=== PATIENT | female | born 1935 | race Caucasian/White ===

== ENCOUNTER 2017-04-24 13:27 | Inpatient (IN) ==
[2017-04-24 16:16] LABS: Basophils # 0.1 K/mcL (0.0-0.2); Eosinophils # 0.6 K/mcL (0.0-0.6); Hematocrit 42.8 % (35.3-44.9); Hemoglobin 13.9 g/dL (11.5-15.4); Immature Granulocytes % 0.3 % (0-4); Lymphocytes # 2.3 K/mcL (0.6-4.6); Lymphocytes % 26.9 %; Mean Corpuscular HGB Conc 32.5 g/dL (31.6-35.5); Mean Corpuscular Hemoglobin 29.4 pg (28.0-33.3); Mean Corpuscular Volume 90.7 fL (83.0-100.0); Mean Platelet Volume 9.5 fL (9.4-12.4); Monocytes # 0.6 K/mcL (0.0-1.3); Monocytes % 6.5 %; Platelet Count 290 K/mcL (140-400); Red Blood Count 4.72 M/mcL (3.82-4.97); Red Cell Distribution Width 13.2 % (11.5-14.5); Segmented Neutrophils % 58.3 %
[2017-04-24 16:29] LABS: Calcium 9.9 mg/dL (8.6-10.8); Potassium 4.5 mEq/L (3.5-4.5)
[2017-04-24] MEDS ORDERED: Vancomycin 1,000 MG in D5% in Water 250 ML IVPB ONE (16:46)
[2017-04-24] MEDS: Gentamicin Oint 15 GM TUBE TP SCH (17:47)
--- NOTE | 2017-04-24 18:05 | Emergency Department Note ---
Disposition Clinical Impression: Cellulitis and abscess of left leg Disposition: Admitted As Inpatient Condition: Fair Time of Disposition: 18:31 General Adult HPI - General Chief complaint: ED Wound/Laceration Stated complaint: ulcer on left leg at the ankle Time Seen by Provider: 04/24/17 15:36 Source: patient Mode of arrival: ambulatory Limitations: no limitations Nursing Notes Reviewed: Yes Vital Signs Reviewed: Yes - History of Present Illness HPI Narrative: Patient is a 81-year-old female with a past medical history of the left ankle ulcer. Pain Scale: 10 - Related Data Home Medications Medication Instructions Recorded Confirmed Acetaminophen [Tylenol] 500 mg PO BID PRN 04/24/17 04/24/17 Aspirin Enteric Coated [Aspirin EC] 325 mg PO DAILY 04/24/17 04/24/17 Carvedilol [Carvedilol] 3.125 mg PO BID 04/24/17 04/24/17 Cholecalciferol (Vitamin D3) 2,000 unit PO DAILY 04/24/17 04/24/17 [Vitamin D] Furosemide [Lasix] 40 mg PO BID PRN 04/24/17 04/24/17 Gabapentin [Neurontin] 300 mg PO BID 04/24/17 04/24/17 Levomilnacipran HCl [Fetzima] 20 mg PO HS 04/24/17 04/24/17 Losartan [Cozaar] 12.5 mg PO DAILY 04/24/17 04/24/17 Multivit with Calcium,Iron,Min 1 each PO DAILY 04/24/17 04/24/17 [One Daily Women's] Omeprazole [PriLOSEC] 40 mg PO DAILY 04/24/17 04/24/17 Polyethylene Glycol 3350 [MiraLAX] 17 gm PO DAILY 04/24/17 04/24/17 Potassium Chloride [K-Tab ER] 20 meq PO BID PRN 04/24/17 04/24/17 Pravastatin Sodium 10 mg PO HS 04/24/17 04/24/17 Tizanidine HCl 2 mg PO TID PRN 04/24/17 04/24/17 Tramadol HCl [Ultram] 50 mg PO BID PRN 04/24/17 04/24/17 Vitamin B Complex [B Complex] 1 each PO DAILY 04/24/17 04/24/17 dilTIAZem HCl [Diltiazem HCl] 120 mg PO BID 04/24/17 04/24/17 Allergies Allergy/AdvReac Type Severity Reaction Status Date / Time No Known Allergies Allergy Verified 04/13/15 13:11 All systems ED: reviewed and negative except as stated. Constitutional: Denies: fever, chills Cardiovascular: Denies: chest pain, palpitations Respiratory: Denies: cough, dyspnea, wheezes Gastrointestinal: Denies: abdominal pain, nausea, vomiting, diarrhea Musculoskeletal: Denies: back pain, neck pain Integumentary: Denies: rash, abrasion Neurological: Denies: headache, weakness Psychiatric: Denies: anxiety, depression Endocrine: Denies: fatigue Past Medical History - Past Medical History Medical history: Reports: arthritis, atrial fibrillation, cancer, hyperlipidemia , hypertension Surgical history: Reports: other (nerve stimulator and nerve ablation lumbar spine) Psychiatric history: Reports: anxiety, depression - Social History Smoking Status: Never smoker Smokeless Tobacco Status: No Alcohol use: Reports: none Drug use: Reports: none Physical Exam Patient not appear to be in any acute distress at this time. She is sitting up in bed reading with her reading glasses on. - General Limitations: no limitations General appearance: alert, in no apparent distress - Head Head exam: atraumatic, normocephalic, normal inspection - Eye Eye exam: Present: normal appearance, PERRL, EOMI - ENT ENT exam: normal exam, normal oropharynx, mucous membranes moist - Neck Neck exam: Present: normal inspection, full ROM, trachea midline - Chest Chest inspection: Present: normal inspection, symmetric chest wall rise. Absent : tenderness - Respiratory Respiratory exam: Present: normal lung sounds bilaterally. Absent: respiratory distress - Cardiovascular Cardiovascular exam: Present: regular rate, normal rhythm, normal heart sounds - Abdominal Exam Abdominal exam: Present: soft, Non-Tender, normal bowel sounds - Extremities Exam Extremities exam: Present: normal inspection, full ROM, normal capillary refill. Absent: tenderness, pedal edema - Back Exam Back exam: Present: normal inspection, full ROM. Absent: CVA tenderness (R), CVA tenderness (L) - Neurological Exam Neurological exam: Present: alert, oriented X3 - Psychiatric Psychiatric exam: Present: normal affect, normal mood - Skin Skin exam: Present: warm, other (Patient has a superficial wound on the left ankle over the lateral aspect that is about 9 x 10 cm in diameter with a overlying pus drainage that is purulent. She also has surrounding erythema to the area with area of induration surrounding 2-3 cm along the edge of the diameter of the wound. There is no bone exposure the wound does not appear to go deep and I do not palpate any subcutaneous emphysema at this time. The wound tracks up to the mid left lateral leg. She has good dorsalis pedis and posterior tibialis pulses bilaterally. Good sensation in both of her feet. Does not appear to be any joint involvement.) Course Course Narrative: Patient is a 81-year-old female with a past medical history of A. fib, hyperlipidemia and hypertension along with diabetes that has resolved according to the patient. She presents with a left lateral ankle wound. She states that back in 1974 she did have a surgery to have veins removed that were controlled bleeding to an ulcer in the same area and that healed well and scarred over however this past spring she was scratched by cat and since then she has had issues with this wound. Her last dose of antibiotics was Bactrim and was a 7 day course at the end of March seen in our emergency department. The patient was sent here by the wound clinic at [facility] for further evaluation of her wound and for IV antibiotics. The patient was started on vancomycin and Zosyn in the emergency Department topical gentamicin was applied to the wound. We also ordered other labs such as inflammatory markers including a CRP and ESR and ankle x-ray. - Reevaluation(s) Reevaluation #1: The patient's ESR was 79 and her C-reactive protein was 11. Her foot x-ray did not show any bony involvement. Otherwise patient's CBC was unremarkable. Plan is to admit the patient to the hospitalists for further IV antibiotics. Patient agrees with this plan. Time: 18:13 Reevaluation #2: Patient admitted to [facility] for further evaluation and treatment. Time: 18:28 Vital Signs Temperature 97.5 F L 04/24/17 13:53 Pulse Rate 72 04/24/17 13:53 Respiratory Rate 18 04/24/17 13:53 Blood Pressure 126/71 04/24/17 13:53 O2 Sat by Pulse Oximetry 98 04/24/17 13:53 Temperature 98.4 F 04/25/17 18:57 Pulse Rate 86 04/25/17 18:57 Respiratory Rate 18 04/25/17 18:57 Blood Pressure 145/64 04/25/17 18:57 O2 Sat by Pulse Oximetry 96 04/25/17 18:57 Oxygen Delivery Oxygen Delivery Room Air Medical Decision Making - Lab Data Result diagrams: 04/25/17 03:51 04/25/17 03:51 Lab Results 04/24/17 04/24/17 04/24/17 Range/Units 16:01 16:01 16:01 WBC 8.6 (4.3-11.1) K/mcL RBC 4.72 (3.82-4.97) M/mcL Hgb 13.9 (11.5-15.4) g/dL Hct 42.8 (35.3-44.9) % MCV 90.7 (83.0-100.0) fL MCH 29.4 (28.0-33.3) pg MCHC 32.5 (31.6-35.5) g/dL RDW 13.2 (11.5-14.5) % Plt Count 290 (140-400) K/mcL MPV 9.5 (9.4-12.4) fL Immature Gran % 0.3 (0-4) % Seg Neutrophils % 58.3 % Lymphocytes % 26.9 % Monocytes % 6.5 % Eosinophils % 7.0 % Basophils % 1.0 % Neutrophils # 5.0 (1.6-8.9) K/mcL Lymphocytes # 2.3 (0.6-4.6) K/mcL Monocytes # 0.6 (0.0-1.3) K/mcL Eosinophils # 0.6 (0.0-0.6) K/mcL Basophils # 0.1 (0.0-0.2) K/mcL ESR 79 H (0-15) mm/hr Sodium 140 (136-145) mEq/L Potassium 4.5 (3.5-4.5) mEq/L Chloride 105 (98-109) mEq/L Carbon Dioxide 25 (19-29) mEq/L BUN 18 (7-20) mg/dL Creatinine 1.07 (0.57-1.11) mg/dL Est GFR ( Amer) 60 (> 60) Est GFR (Non-Af Amer) 49 L (> 60) BUN/Creatinine Ratio 17 (6-26) Glucose 101 H (70-99) mg/dL Calculated Osmolality 292 (280-300) Calcium 9.9 (8.6-10.8) mg/dL C-Reactive Protein 11 H (Less than 5) mg/L Attestation Statement - Attestation Attestation: I examined this patient and my medical decision-making was reviewed with the Resident Physician. I agree with the documented findings, disposition and treatment plan as described except to the extent set forth below. Suspect local cellulitis. [facility] for IV antibiotics. The patient was sent in by their primary care physician. No evidence of gas forming organisms or are C myelitis on x-ray.
[2017-04-24] MEDS ORDERED: Ondansetron 4 MG/2 ML VIAL IVP PRN (22:28)
[2017-04-24] MEDS ORDERED: Naloxone 0.4 MG/ML INJ IVP PRN (22:28)
[2017-04-24] MEDS ORDERED: tiZANidine 4 MG TABLET PO PRN (22:33)
[2017-04-24] MEDS ORDERED: traMADol 50 MG TABLET PO PRN (22:33)
[2017-04-24] MEDS ORDERED: Furosemide 40 MG TABLET PO PRN (22:33)
--- NOTE | 2017-04-24 22:59 | Internal Med History&Physical ---
<[facility] - Last Filed: 04/24/17 23:24> Date of Encounter: 04/24/17 Time of Encounter: 21:00 Assessment and Plan (1) Cellulitis and abscess of left leg Current visit: Yes Status: Acute Acute on chronic wound of the left outer ankle. She reports this wound has been recurring for the past 40 years. Patient has cellulitis of left lower extremity with erythema and edema as well as open wound to left outer ankle with purulent drainage. Patient reports she was receiving wound care at [facility] previously. Wound culture ordered. Wound care consult and daily wound care ordered. IV piggyback vancomycin with pharmacy dosing and Zosyn 3.375 gm every 8 hours for infection coverage. Will adjust antibiotic coverage based on culture results. (2) HLD (hyperlipidemia) Current visit: Yes Status: Chronic Hx of chronic HLD. Lipid panel ordered in a.m. labs. Continue patient's pravastatin. Qualifiers: Hyperlipidemia type: pure hypercholesterolemia Qualified Code(s): E78.00 - Pure hypercholesterolemia, unspecified; E78.0 - Pure hypercholesterolemia (3) HTN (hypertension) Current visit: Yes Status: Chronic Hx of chronic HTN. Monitor patient in vital signs and continue patient's carvedilol, diltiazem, and Cozaar. Qualifiers: Hypertension type: essential hypertension Qualified Code(s): I10 - Essential (primary) hypertension (4) Atrial fibrillation Current visit: Yes Status: Chronic Hx of chronic atrial fibrillation. Patient reports she is not on anticoagulation due to reaction she suffered previously. Continue aspirin therapy. Patient placed on continuous cardiac telemetry. Qualifiers: Atrial fibrillation type: chronic Qualified Code(s): I48.2 - Chronic atrial fibrillation (5) Arthritis Current visit: Yes Status: Chronic Hx of chronic arthritis. Continue Ultram and tizanidine. (6) DVT prophylaxis Current visit: Yes Status: Acute Heparin 5,000 units SQ Q8 for DVT prophylaxis. Internal Medicine - H&P: HPI Chief complaint: Painful sore on left outer ankle Admitted From: Emergency Dept Plans for Post Hospital Care: Home History of present illness: Ms. Jalloh is a 81 year old female with medical history of arthritis, atrial fibrillation, previous ovarian cancer, hyperlipidemia, hypertension presents to ED with chief complaint of a painful open sore on the left outer ankle which she states she has suffered with on and off for approximately 40 years. Patient reports she has been followed at [facility] [facility] for wound care in the past. Patient reports pain in the left lower ankle, chronic back pain, and some dizziness but denies chest pain, palpitations, recent illness, fever, chills, cough, unusual bleeding, abdominal pain, changes in vision, nausea, vomiting, diarrhea, headache, weakness, lightheadedness, presyncope, or syncope. Past Med Surg Social Fam HX - Past Medical History Source: patient, old records reviewed Medical history: arthritis, atrial fibrillation, cancer, hyperlipidemia, hypertension Psychiatric history: anxiety, depression - Past Surgical History Surgical History: appendectomy, cholecystectomy, herniorrhaphy, hysterectomy ( Total d/t ovarian cancer), other - Social History Smoking Status: Former smoker Packs per day: 1/2 PPD - Reports quitting 50 years ago Smokeless Tobacco Status: No Alcohol use: none Drug use: none Current living situation: Home Activity Level: Independent ambulation, Uses cane/walker Recent Out of Country Travel Within the Last 8 Weeks: No Exposure or Possible Exposure to Illness During Travel: No - Family History Father Race: Family Member Ethnicity: Non- Living Status: Age at : 78 Cause of : Kidney cancer Hx Family Cancer: Yes (Kidney) Mother Race: Family Member Ethnicity: Non- Living Status: Age at : 79 Cause of : HD Hx Family Cardiac Disorders: Yes (HD) Hx Family Neuromuscular Disorders: Yes (Parkinson disease) Brother Race: Family Member Ethnicity: Non- Living Status: Age at : 79 Cause of : Renal failure Hx Family Cardiac Disorders: Yes (Quad bypass) Hx Family Genitourinary Disorders: Yes (CKD w/dialysis) Hx Family Endocrine Disorder: Yes (DM) Sister Race: Family Member Ethnicity: Non- Living Status: (5) Age at : 57 Cause of : Lung cancer Hx Family Cancer: Yes (Lung) Grandmother Race: Family Member Ethnicity: Non- Living Status: Cause of : CAD Hx Family Cardiac Disorders: Yes (CAD) Internal Medicine - H&P: Meds Acetaminophen [Tylenol] 500 mg PO BID PRN 04/24/17 [History] Aspirin Enteric Coated [Aspirin EC] 325 mg PO DAILY 04/24/17 [History] Carvedilol [Carvedilol] 3.125 mg PO BID 04/24/17 [History] Cholecalciferol (Vitamin D3) [Vitamin D] 2,000 unit PO DAILY 04/24/17 [History] Furosemide [Lasix] 40 mg PO BID PRN 04/24/17 [History] Gabapentin [Neurontin] 300 mg PO BID 04/24/17 [History] Levomilnacipran HCl [Fetzima] 20 mg PO HS 04/24/17 [History] Losartan [Cozaar] 12.5 mg PO DAILY 04/24/17 [History] Multivit with Calcium,Iron,Min [One Daily Women's] 1 each PO DAILY 04/24/17 [ History] Omeprazole [PriLOSEC] 40 mg PO DAILY 04/24/17 [History] Polyethylene Glycol 3350 [MiraLAX] 17 gm PO DAILY 04/24/17 [History] Potassium Chloride [K-Tab ER] 20 meq PO BID PRN 04/24/17 [History] Pravastatin Sodium 10 mg PO HS 04/24/17 [History] Tizanidine HCl 2 mg PO TID PRN 04/24/17 [History] Tramadol HCl [Ultram] 50 mg PO BID PRN 04/24/17 [History] Vitamin B Complex [B Complex] 1 each PO DAILY 04/24/17 [History] dilTIAZem HCl [Diltiazem HCl] 120 mg PO BID 04/24/17 [History] 3 Allergy/AdvReac Type Severity Reaction Status Date / Time No Known Allergies Allergy Verified 04/13/15 13:11 All Systems PM: A 10-system review of systems was performed and is negative for pertinent findings except as documented above in the HPI. - Constitutional Constitutional: no chills, no fever(s), no night sweats - EENT Eyes: no change in vision, no discharge, no pain, no photophobia Ears: no ear discharge, no ear pain, no tinnitus Nose, mouth and throat: no dysphagia, no nasal discharge, no neck pain, no sore throat - Breasts Breasts: as per HPI - Cardiovascular Cardiovascular ROS IM: no chest pain, no diaphoresis, no dyspnea, no lightheadedness, no palpitations, no syncope - Respiratory Respiratory: no cough, no dyspnea, no wheezing, no excessive phlegm production - Gastrointestinal Gastrointestinal: no abdominal pain, no diarrhea, no hematemesis, no hematochezia, no melena, no nausea, no vomiting - Genitourinary Genitourinary: no change in urinary stream, no dysuria, no flank pain, no hematuria Menstruation: post hysterectomy - Musculoskeletal Musculoskeletal ROS IM: as per HPI, back pain, no numbness, no tingling - Integumentary Integumentary IM: as per HPI, sores (Left outer ankle) - Neurological Neurological ROS: no confusion, no convulsions, no focal weakness, no numbness, no tingling, no tremor(s) - Psychiatric Psychiatric: as per HPI - Endocrine Endocrine IM: as per HPI - Hematologic/Lymphatic Hematologic/Lymphatic: no easy bruising - Allergic/Immunologic Allergic/Immunologic: as per HPI - Constitutional Vitals: Temp Pulse Resp BP Pulse Ox 98.0 F 90 14 148/85 97 04/24/17 20:08 04/24/17 20:08 04/24/17 20:08 04/24/17 20:08 04/24/17 20:08 General appearance: Present: cooperative, A&O X 3, pleasant, no acute distress, obese, answers questions appropriately - Head Head exam: Present: atraumatic, normocephalic - Eye Eye exam: Present: PERRL, conjuntiva pink, sclera anicteric Pupils: Present: PERRL - ENT ENT exam: Present: normal exam, normal external ear exam - Neck Neck exam general surgery: Present: normal inspection, supple, trachea midline. Absent: lymphadenopathy - Respiratory Respiratory exam: Present: CTAB. Absent: accessory muscle use, rales, rhonchi, wheezes - Cardiovascular Cardiovascular exam: Present: RRR, +S1, +S2. Absent: diastolic murmur, gallop, rubs, systolic murmur - GI/Abdominal GI/Abdominal exam: Present: normal bowel sounds, soft, no peritoneal signs. Absent: distended, tenderness - Rectal Rectal exam: Present: deferred - Additional comments: exam deferred. - Extremities Exam Extremities exam: Present: warm, radial pulses palpable and symmetrical. Absent : calf tenderness, cyanotic, pedal edema - Back Exam Back exam: Present: normal inspection - Neurological Exam Neurological exam: Present: CN II-XII intact, oriented X3, no focal deficits. Absent: pronater drift, facial droop, speech deficit - Psychiatric Psychiatric exam: Present: normal affect, normal mood - Skin Additional comments: Open sore to the left outer ankle with cellulitis of the LLE. Erythema and edema present. Internal Med - H&P Results - Labs CBC & Chem 7: 04/24/17 16:01 04/24/17 16:01 - Diagnostic Studies Other Images Additional comments: Impressions Ankle X-Ray 04/24/17 16:43 IMPRESSION: No acute periostitis or bony destruction. D/ / Andi Knight MD / Andi Knight MD Interpreting Provider: Andi Knight MD <Louise Lloyd - Last Filed: 04/25/17 03:29> Date of Encounter: 04/25/17 Internal Medicine - H&P: HPI History of present illness: Ms. Jalloh is a 81 year old female All Systems PM: A 10-system review of systems was performed and is negative for pertinent findings except as documented above in the HPI. - Constitutional Vitals: Temp Pulse Resp BP Pulse Ox 97.9 F 83 14 160/78 95 04/24/17 23:20 04/24/17 23:20 04/24/17 23:20 04/24/17 23:20 04/24/17 23:20 Internal Med - H&P Results - Labs CBC & Chem 7: 04/24/17 16:01 04/24/17 16:01 - Attending Attestation I saw and examined patient independently. I have discussed with QUALITY ASSURANCE DIRECTOR Mr [facility]ger regarding the management plan. Agree with the documentation. Patient presented with left ankle ulcer with cellulitis. We will place patient on Vanco and Zosyn at this point. Follow-up blood culture and wound culture. We will consult wound care.
[2017-04-24] MEDS ORDERED: Vancomycin 1,250 MG in D5% in Water 250 ML IVPB SCH (23:00)
[2017-04-25] MEDS ORDERED: Piperacillin/Tazobactam 3.375 GM in D5% in Water (Mini-Bag+) 100 ML IVPB SCH
[2017-04-25] MEDS: Diltiazem SR (12hr) 60 MG CAPSULE PO SCH ×3 (00:20→21:09)
[2017-04-25] MEDS: *HR* Heparin 5,000 UNIT/ML VIAL SQ SCH ×3 (00:21→17:17)
[2017-04-25] MEDS: Piperacillin/Tazobactam 3.375 GM in D5% in Water (Mini-Bag+) 100 ML IVPB SCH ×3 (00:21→17:16)
[2017-04-25 04:43] LABS: INR 1.1; Prothrombin Time 11.7 Seconds (9.4-12.1)
[2017-04-25 04:50] LABS: Basophils # 0.1 K/mcL (0.0-0.2); Eosinophils # 0.5 K/mcL (0.0-0.6); Eosinophils % 6.4 %; Hematocrit 36.5 % (35.3-44.9); Immature Granulocytes % 0.2 % (0-4); Lymphocytes # 2.3 K/mcL (0.6-4.6); Lymphocytes % 27.2 %; Mean Corpuscular HGB Conc 33.4 g/dL (31.6-35.5); Mean Corpuscular Hemoglobin 29.5 pg (28.0-33.3); Mean Corpuscular Volume 88.2 fL (83.0-100.0); Mean Platelet Volume 9.7 fL (9.4-12.4); Monocytes # 0.6 K/mcL (0.0-1.3); Monocytes % 7.6 %; Neutrophils # 4.8 K/mcL (1.6-8.9); Platelet Count 244 K/mcL (140-400); Red Blood Count 4.14 M/mcL (3.82-4.97); Red Cell Distribution Width 13.3 % (11.5-14.5); Segmented Neutrophils % 57.6 %
[2017-04-25 04:52] LABS: Hemoglobin 12.2 g/dL (11.5-15.4)
[2017-04-25 04:58] LABS: Alanine Aminotransferase 8 Units/L (0-55); Albumin 3.3 g/dL (3.5-5.0); Alkaline Phosphatase 91 Units/L (38-126); Aspartate Amino Transferase 17 Units/L (5-34); BUN/Creatinine Ratio 16 (6-26); Bilirubin,Total 0.5 mg/dL (0.2-1.2); Blood Urea Nitrogen 17 mg/dL (7-20); Calcium 9.4 mg/dL (8.6-10.8); Carbon Dioxide 24 mEq/L (19-29); Chloride 106 mEq/L (98-109); Chol/HDL Ratio 3.6 (0-4.9); Cholesterol 159 mg/dL (< 200); Globulin 3.3 g/dL (2.4-3.5); Glucose 117 mg/dL (70-99); HDL Cholesterol 44 mg/dL (40-59); LDL Cholesterol,Calculated 92 mg/dL (0-99); Magnesium 1.9 mg/dL (1.6-2.6); Osmolality,Calculated 295 (280-300); Sodium 141 mEq/L (136-145); Total Protein 6.6 g/dL (6.0-8.3); Triglycerides 113 mg/dL (< 150); eGFR For African Americans > 60 (> 60); eGFR For Non-African Americans 50 (> 60)
[2017-04-25 05:11] LABS: Hemoglobin A1C 5.8 %
[2017-04-25] MEDS ORDERED: Vancomycin 1,250 MG in D5% in Water 250 ML IVPB SCH (06:00)
[2017-04-25] MEDS: Vitamin B Complex/Vit C/Vit E 1 EACH TABLET PO SCH (08:01)
[2017-04-25] MEDS: Gabapentin 300 MG CAPSULE PO SCH ×2 (08:01→21:09)
[2017-04-25] MEDS: Aspirin Enteric Coated 325 MG Tablet PO SCH (08:01)
[2017-04-25] MEDS: Cholecalciferol (D-3) 1,000 UNIT TABLET PO SCH (08:02)
[2017-04-25] MEDS: Multivit/Ca/Min/Fe/FA 1 TAB TABLET PO SCH (08:02)
[2017-04-25] MEDS ORDERED: Diltiazem SR (12hr) 60 MG CAPSULE PO SCH (09:00)
[2017-04-25] MEDS ORDERED: 0.9 % Sodium Chloride 1,000 ML IVC SCH (10:15)
--- NOTE | 2017-04-25 10:54 | Internal Med Progress Note ---
<Patel Sanchez - Last Filed: 04/25/17 18:08> Date of Encounter: 04/25/17 Time of Encounter: 09:00 - Assessment and plan (1) Cellulitis and abscess of left leg Current Visit: Yes Status: Acute Assessment and plan: Acute on chronic wound of left lateral malleolus/outer ankle. Wound recurring for past 40 years. Past hx of debridement 40 years ago, unspecified remove of superficial vasculature. Wound culture ordered. Blood culture ordered. CT scan with contrast shows to bony infiltrate, no acute fracture. continue vancomycin and zosyn, with adjustments upon culture results. (2) Atrial fibrillation Current Visit: Yes Status: Chronic Assessment and plan: Hx chronic a-fib; reports anxiety when taking coumadin and has since declined being prescribed coumadin, continue aspirin therapy. Monitoring on cardiac telemetry. Qualifiers: Atrial fibrillation type: chronic Qualified Code(s): I48.2 - Chronic atrial fibrillation (3) HLD (hyperlipidemia) Current Visit: Yes Status: Chronic Assessment and plan: Hx chronic HLD. Lipid panel 04/25: LDL 92, HDL 44, Triglycerides 113. Qualifiers: Hyperlipidemia type: pure hypercholesterolemia Qualified Code(s): E78.00 - Pure hypercholesterolemia, unspecified; E78.0 - Pure hypercholesterolemia (4) HTN (hypertension) Current Visit: Yes Status: Chronic Assessment and plan: Hx of chronic HTN. Monitor vitals, continue home meds: carvedilol, diltiazem, and cozaar. Qualifiers: Hypertension type: essential hypertension Qualified Code(s): I10 - Essential (primary) hypertension (5) DVT prophylaxis Current Visit: Yes Status: Acute Assessment and plan: Heparin 5000 units SQ Q8 for DVT prophylaxis (6) Arthritis Current Visit: Yes Status: Chronic Assessment and plan: Continue Ultram and tizanidine. - Subjective Interval history: Ms. Jalloh is a 81 year old female with medical history of arthritis, atrial fibrillation, previous ovarian cancer, hyperlipidemia, hypertension presents to ED with chief complaint of a painful open sore on the left outer ankle which she states she has suffered with on and off for approximately 40 years. Wound has existed since December of this year, caused as patient reports by a cat scratch. Pt reports left lower ankle is seeping regularly, continues to be alert without fever, no falls. - Constitutional Vitals: Temp Pulse Resp BP Pulse Ox 98.2 F 90 15 135/73 98 04/25/17 10:27 04/25/17 10:27 04/25/17 10:27 04/25/17 10:27 04/25/17 10:27 General appearance: Present: cooperative, A&O X 3, pleasant, no acute distress, obese, answers questions appropriately - Head Head exam: Present: atraumatic, normal inspection - Respiratory Respiratory exam: Present: CTAB. Absent: accessory muscle use, decreased breath sounds - Cardiovascular Cardiovascular exam: Present: RRR, +S1, +S2. Absent: systolic murmur - Extremities Exam Extremities exam: Present: normal capillary refill. Absent: calf tenderness Additional comments: Left lateral malleolar superficial ulceration, [id number], mild discharge. Dorsalis pedis pulse brisk/palpable bilaterally. Internal Medicine: Result - Labs CBC & Chem 7: 04/25/17 03:51 04/25/17 03:51 Labs: Short CBC 04/25/17 Range/Units 03:51 WBC 8.4 (4.3-11.1) K/mcL Hgb 12.2 D (11.5-15.4) g/dL Hct 36.5 (35.3-44.9) % Plt Count 244 (140-400) K/mcL Neutrophils # 4.8 (1.6-8.9) K/mcL BMP 04/25/17 03:51 Sodium 141 Potassium 4.0 Chloride 106 Carbon Dioxide 24 BUN 17 Creatinine 1.06 Glucose 117 H Calcium 9.4 Liver Function 04/25/17 Range/Units 03:51 Total Bilirubin 0.5 (0.2-1.2) mg/dL AST 17 (5-34) Units/L ALT 8 (0-55) Units/L Alkaline Phosphatase 91 (38-126) Units/L Albumin 3.3 L (3.5-5.0) g/dL - ABG Interpretation ABG results: PT/INR, D-dimer PT 11.7 Seconds (9.4-12.1) 04/25/17 03:51 Consult Discharge Plan - Plan Referrals: Xi Arnold, CODING SPECIALIST [Advanced Practice Nurse] - 05/04/17 7:45 am <Siddharth Stanley - Last Filed: 04/26/17 10:07> Date of Encounter: 04/26/17 - Constitutional Vitals: Temp Pulse Resp BP Pulse Ox 98.3 F 65 16 132/53 93 04/26/17 07:04 04/26/17 07:04 04/26/17 07:04 04/26/17 07:04 04/26/17 07:04 Internal Medicine: Result - Labs CBC & Chem 7: 04/26/17 05:09 04/26/17 05:09 Labs: Short CBC 04/26/17 Range/Units 05:09 WBC 6.9 (4.3-11.1) K/mcL Hgb 12.4 (11.5-15.4) g/dL Hct 37.6 (35.3-44.9) % Plt Count 241 (140-400) K/mcL Neutrophils # 3.3 (1.6-8.9) K/mcL BMP 04/26/17 05:09 Sodium 141 Potassium 4.2 Chloride 106 Carbon Dioxide 27 BUN 16 Creatinine 1.30 H Glucose 132 H Calcium 9.6 Liver Function 04/26/17 Range/Units 05:09 Total Bilirubin 0.5 (0.2-1.2) mg/dL AST 15 (5-34) Units/L ALT 10 (0-55) Units/L Alkaline Phosphatase 92 (38-126) Units/L Albumin 3.3 L (3.5-5.0) g/dL - ABG Interpretation ABG results: PT/INR, D-dimer PT 11.7 Seconds (9.4-12.1) 04/25/17 03:51 - Impressions Impressions Lower Extremity CT 04/25/17 10:30 IMPRESSION: Diffuse nonspecific subcutaneous edema and skin thickening to the left lower extremity, most prominent to the mid to distal leg/ankle. No focal fluid collections, radiopaque foreign bodies or soft tissue gas. No acute bony abnormalities. No CT evidence for osteomyelitis. Mild degenerative changes to the medial compartment of the left knee along with trace knee joint effusion. D/ / 04/25/2017 12:07:44 Raphael Johnson MD / bcarter Interpreting Provider: Raphael Johnson MD - Attending Attestation I examined this patient and my medical decision-making was reviewed with the Resident Physician. I agree with the documented findings, disposition and treatment plan as described except to the extent set forth below. Ms. Jalloh is a 81 year old female with medical history of arthritis, atrial fibrillation, previous ovarian cancer, hyperlipidemia, [facility] Pt stated she has been having this leg problem for a while, recently had CLAY / Venous Doppler done recently by PCP. Gen: A, A, O x3 Ext: Diffuse erythema in left leg lower 1/3 around ankle, open grade 1 skin ulcer on lateral region a/p 1. Left lower ext ulcer 2. Left leg cellulities will obtain medical recrds from PCP regarding her recent vascular studies cont empirical abx Zosyn and Vanco Cont topical ai fungal cream CT of leg - no signs of osteo
[2017-04-25] MEDS: Gentamicin Oint 15 GM TUBE TP SCH (12:03)
[2017-04-25] MEDS ORDERED: Miconazole 2% ointment 114 GM TUBE TP SCH (13:30)
[2017-04-25] MEDS ORDERED: traMADol 50 MG TABLET PO PRN (14:44)
[2017-04-25] MEDS: Miconazole 2% ointment 114 GM TUBE TP SCH (16:00)
[2017-04-25] MEDS: FETZIMA 20 MG PO SCH (21:11)
[2017-04-26] MEDS: Piperacillin/Tazobactam 3.375 GM in D5% in Water (Mini-Bag+) 100 ML IVPB SCH ×2 (00:25→08:59)
[2017-04-26] MEDS: *HR* Heparin 5,000 UNIT/ML VIAL SQ SCH ×4 (00:27→23:26)
[2017-04-26 05:45] LABS: Basophils # 0.1 K/mcL (0.0-0.2); Basophils % 1.3 %; Eosinophils # 0.5 K/mcL (0.0-0.6); Eosinophils % 7.2 %; Hematocrit 37.6 % (35.3-44.9); Hemoglobin 12.4 g/dL (11.5-15.4); Immature Granulocytes % 0.3 % (0-4); Lymphocytes # 2.3 K/mcL (0.6-4.6); Lymphocytes % 34.2 %; Mean Corpuscular Hemoglobin 29.6 pg (28.0-33.3); Mean Corpuscular Volume 89.7 fL (83.0-100.0); Mean Platelet Volume 9.7 fL (9.4-12.4); Monocytes # 0.6 K/mcL (0.0-1.3); Monocytes % 8.5 %; Neutrophils # 3.3 K/mcL (1.6-8.9); Platelet Count 241 K/mcL (140-400); Red Blood Count 4.19 M/mcL (3.82-4.97); Red Cell Distribution Width 13.3 % (11.5-14.5); Segmented Neutrophils % 48.5 %
[2017-04-26 05:57] LABS: Albumin 3.3 g/dL (3.5-5.0); Bilirubin,Total 0.5 mg/dL (0.2-1.2); Calcium 9.6 mg/dL (8.6-10.8); Globulin 3.3 g/dL (2.4-3.5); Potassium 4.2 mEq/L (3.5-4.5); Total Protein 6.6 g/dL (6.0-8.3)
[2017-04-26] MEDS: Gabapentin 300 MG CAPSULE PO SCH ×2 (08:56→21:49)
[2017-04-26] MEDS: Cholecalciferol (D-3) 1,000 UNIT TABLET PO SCH (08:57)
[2017-04-26] MEDS: Aspirin Enteric Coated 325 MG Tablet PO SCH (08:57)
[2017-04-26] MEDS: Multivit/Ca/Min/Fe/FA 1 TAB TABLET PO SCH (08:59)
[2017-04-26] MEDS: Diltiazem SR (12hr) 60 MG CAPSULE PO SCH ×2 (09:20→21:49)
--- NOTE | 2017-04-26 10:51 | Internal Med Progress Note ---
Date of Encounter: 04/26/17 Time of Encounter: 09:00 - Assessment and plan (1) Cellulitis and abscess of left leg Current Visit: Yes Status: Acute Assessment and plan: Acute on chronic wound of left lateral malleolus/outer ankle. Wound recurring for past 40 years. Past hx of debridement 40 years ago, unspecified remove of superficial vasculature. Wound culture ordered. Blood culture ordered. CT scan with contrast shows to bony infiltrate, no acute fracture. continue vancomycin and zosyn, with adjustments upon culture results. Leg dressed and well-healing, no new onset calf tenderness, crepitus, purulence (2) Atrial fibrillation Current Visit: Yes Status: Chronic Assessment and plan: Hx chronic a-fib; reports anxiety when taking coumadin and has since declined being prescribed coumadin, continue aspirin therapy. Monitoring on cardiac telemetry. Qualifiers: Atrial fibrillation type: chronic Qualified Code(s): I48.2 - Chronic atrial fibrillation (3) HLD (hyperlipidemia) Current Visit: Yes Status: Chronic Assessment and plan: Hx chronic HLD. Lipid panel 04/25: LDL 92, HDL 44, Triglycerides 113. Qualifiers: Hyperlipidemia type: pure hypercholesterolemia Qualified Code(s): E78.00 - Pure hypercholesterolemia, unspecified; E78.0 - Pure hypercholesterolemia (4) HTN (hypertension) Current Visit: Yes Status: Chronic Assessment and plan: Hx of chronic HTN. Monitor vitals, continue home meds: carvedilol, diltiazem, and cozaar. Qualifiers: Hypertension type: essential hypertension Qualified Code(s): I10 - Essential (primary) hypertension (5) DVT prophylaxis Current Visit: Yes Status: Acute Assessment and plan: Heparin 5000 units SQ Q8 for DVT prophylaxis (6) Arthritis Current Visit: Yes Status: Chronic - Subjective Interval history: Ms. Jalloh is a 81 year old female with medical history of arthritis, atrial fibrillation, previous ovarian cancer, hyperlipidemia, hypertension presents to ED with chief complaint of a painful open sore on the left outer ankle which she states she has suffered with on and off for approximately 40 years. Wound has existed since December of this year, caused as patient reports by a cat scratch. Pt reports no anxiety overnight (which she was concerned about), left leg feels improved, wound is slightly itchy but does not bother her, no numbness/tingling , no calf tenderness. - Constitutional Vitals: Temp Pulse Resp BP Pulse Ox 98.3 F 65 16 132/53 93 04/26/17 07:04 04/26/17 07:04 04/26/17 07:04 04/26/17 07:04 04/26/17 07:04 General appearance: Present: cooperative, A&O X 3, pleasant, no acute distress, obese, answers questions appropriately - Respiratory Respiratory exam: Present: CTAB. Absent: rales, rhonchi, wheezes - Cardiovascular Cardiovascular exam: Present: +S1, +S2. Absent: systolic murmur - GI/Abdominal GI/Abdominal exam: Present: no peritoneal signs. Absent: tenderness - Extremities Exam Extremities exam: Present: warm. Absent: calf tenderness Additional comments: Superficial left ankle ulcer shows 2.5cmx2.5cm are of active seeping, erythema surrounding improved since admission. Continued palpable pulse, no calf tenderness to palpation. Internal Medicine: Result - Labs CBC & Chem 7: 04/26/17 05:09 04/26/17 05:09 Labs: Short CBC 04/26/17 Range/Units 05:09 WBC 6.9 (4.3-11.1) K/mcL Hgb 12.4 (11.5-15.4) g/dL Hct 37.6 (35.3-44.9) % Plt Count 241 (140-400) K/mcL Neutrophils # 3.3 (1.6-8.9) K/mcL BMP 04/26/17 05:09 Sodium 141 Potassium 4.2 Chloride 106 Carbon Dioxide 27 BUN 16 Creatinine 1.30 H Glucose 132 H Calcium 9.6 Liver Function 04/26/17 Range/Units 05:09 Total Bilirubin 0.5 (0.2-1.2) mg/dL AST 15 (5-34) Units/L ALT 10 (0-55) Units/L Alkaline Phosphatase 92 (38-126) Units/L Albumin 3.3 L (3.5-5.0) g/dL - ABG Interpretation ABG results: PT/INR, D-dimer PT 11.7 Seconds (9.4-12.1) 04/25/17 03:51 - Impressions Impressions Lower Extremity CT 04/25/17 10:30 IMPRESSION: Diffuse nonspecific subcutaneous edema and skin thickening to the left lower extremity, most prominent to the mid to distal leg/ankle. No focal fluid collections, radiopaque foreign bodies or soft tissue gas. No acute bony abnormalities. No CT evidence for osteomyelitis. Mild degenerative changes to the medial compartment of the left knee along with trace knee joint effusion. D/ /25/2017 12:07:44 Raphael Johnson MD / [email or web address] Interpreting Provider: Raphael Johnson MD Consult Discharge Plan - Plan Referrals: Xi Arnold FUR JOINER [Advanced Practice Nurse] - 05/04/17 7:45 am
[2017-04-26] MEDS: Miconazole 2% ointment 114 GM TUBE TP SCH ×2 (11:01→16:29)
[2017-04-26] MEDS: Vitamin B Complex/Vit C/Vit E 1 EACH TABLET PO SCH (11:26)
--- NOTE | 2017-04-26 16:42 | Event Note ---
Date of Encounter: 04/26/17 Time of Encounter: 16:35 I examined this patient and my medical decision-making was reviewed with the Resident Physician. I agree with the documented findings, disposition and treatment plan as described except to the extent set forth below. Ms. Jalloh is a 81 year old female with medical history of arthritis, atrial fibrillation, previous ovarian cancer, hyperlipidemia, [facility] Pt stated she has been having this leg problem for a while, recently had CLAY / Venous Doppler done recently by PCP. Gen: A, A, O x3 Ext: Improving erythema in left leg lower 1/3 around ankle, open grade 1 skin ulcer on lateral region a/p 1. Left lower ext ulcer 2. Left leg cellulites Reviewed her venous Doppler from PCP office -No DVT cont empirical abx Zosyn and Vanco Cont holding Vanco today due to IV contrast y/d and her Cr went upto 1.3 Cont topical anti fungal cream Cont local wound care CT of leg - no signs of osteo will get arterial doppler studies 3. NUHA with CKD-2 started on gentle hydration
[2017-04-26] MEDS ORDERED: Piperacillin/Tazobactam 3.375 GM in D5% in Water (Mini-Bag+) 100 ML IVPB SCH (18:00)
[2017-04-26] MEDS: FETZIMA 20 MG PO SCH (21:49)
[2017-04-26] MEDS: Acetaminophen 325 MG TABLET PO PRN (23:25)
[2017-04-27 06:25] LABS: Basophils # 0.1 K/mcL (0.0-0.2); Eosinophils # 0.6 K/mcL (0.0-0.6); Eosinophils % 7.5 %; Hematocrit 36.4 % (35.3-44.9); Hemoglobin 12.1 g/dL (11.5-15.4); Immature Granulocytes % 0.2 % (0-4); Lymphocytes # 2.6 K/mcL (0.6-4.6); Lymphocytes % 32.1 %; Mean Corpuscular HGB Conc 33.2 g/dL (31.6-35.5); Mean Corpuscular Hemoglobin 29.4 pg (28.0-33.3); Mean Corpuscular Volume 88.6 fL (83.0-100.0); Mean Platelet Volume 9.6 fL (9.4-12.4); Monocytes # 0.7 K/mcL (0.0-1.3); Monocytes % 8.1 %; Neutrophils # 4.2 K/mcL (1.6-8.9); Platelet Count 226 K/mcL (140-400); Red Blood Count 4.11 M/mcL (3.82-4.97); Red Cell Distribution Width 13.5 % (11.5-14.5); Segmented Neutrophils % 51.1 %
[2017-04-27] MEDS: Piperacillin/Tazobactam 3.375 GM in D5% in Water (Mini-Bag+) 100 ML IVPB SCH ×3 (06:33→22:58)
[2017-04-27 06:38] LABS: Calcium 9.2 mg/dL (8.6-10.8)
[2017-04-27] MEDS: Multivit/Ca/Min/Fe/FA 1 TAB TABLET PO SCH (08:54)
[2017-04-27] MEDS: Gabapentin 300 MG CAPSULE PO SCH ×2 (08:54→21:31)
[2017-04-27] MEDS: Diltiazem SR (12hr) 60 MG CAPSULE PO SCH ×2 (08:54→21:32)
[2017-04-27] MEDS: Vitamin B Complex/Vit C/Vit E 1 EACH TABLET PO SCH (08:54)
[2017-04-27] MEDS: Cholecalciferol (D-3) 1,000 UNIT TABLET PO SCH (08:54)
[2017-04-27] MEDS: Aspirin Enteric Coated 325 MG Tablet PO SCH (08:55)
[2017-04-27] MEDS: *HR* Heparin 5,000 UNIT/ML VIAL SQ SCH ×3 (08:55→23:30)
[2017-04-27] MEDS ORDERED: Vancomycin 1,000 MG in D5% in Water 250 ML IVPB ONE (09:00)
--- NOTE | 2017-04-27 09:32 | Internal Med Progress Note ---
<Patel Sanchez - Last Filed: 04/27/17 14:19> Date of Encounter: 04/27/17 Time of Encounter: 09:32 - Assessment and plan (1) Cellulitis and abscess of left leg Current Visit: Yes Status: Acute Assessment and plan: Acute on chronic wound of left lateral malleolus/outer ankle. Wound recurring for past 40 years. Past hx of debridement 40 years ago, unspecified remove of superficial vasculature. Wound culture ordered. Blood culture ordered. CT scan with contrast shows to bony infiltrate, no acute fracture. Vancomycin held due to increased creatinine to 1.3; gentle hydration provided. Wound culture reported +MRSA. Blood culture pending. L ankle dressed and well-healing, no new onset calf tenderness, crepitus, or purulence. (2) Atrial fibrillation Current Visit: Yes Status: Chronic Assessment and plan: Hx chronic a-fib; reports anxiety when taking coumadin and has since declined being prescribed coumadin, continue aspirin therapy. Monitoring on cardiac telemetry. Qualifiers: Atrial fibrillation type: chronic Qualified Code(s): I48.2 - Chronic atrial fibrillation (3) HLD (hyperlipidemia) Current Visit: Yes Status: Chronic Assessment and plan: Hx chronic HLD. Lipid panel 04/25: LDL 92, HDL 44, Triglycerides 113. Qualifiers: Hyperlipidemia type: pure hypercholesterolemia Qualified Code(s): E78.00 - Pure hypercholesterolemia, unspecified; E78.0 - Pure hypercholesterolemia (4) HTN (hypertension) Current Visit: Yes Status: Chronic Assessment and plan: Hx of chronic HTN. Monitor vitals, continue home meds: carvedilol, diltiazem, and cozaar. Qualifiers: Hypertension type: essential hypertension Qualified Code(s): I10 - Essential (primary) hypertension (5) DVT prophylaxis Current Visit: Yes Status: Acute Assessment and plan: Heparin 5000 units SQ Q8 for DVT prophylaxis (6) Arthritis Current Visit: Yes Status: Chronic Assessment and plan: Continue Ultram and tizanidine. - Subjective Interval history: Ms. Jalloh is a 81 year old female with medical history of arthritis, atrial fibrillation, previous ovarian cancer, hyperlipidemia, hypertension presents to ED with chief complaint of a painful open sore on the left outer ankle which she states she has suffered with on and off for approximately 40 years. Wound has existed since December of this year, caused as patient reports by a cat scratch. Pt reports less itching of leg, no swelling, no fever, comfortable, no dysurea. - Constitutional Vitals: Temp Pulse Resp BP Pulse Ox 97.4 F L 70 16 141/79 97 04/27/17 06:55 04/27/17 06:55 04/27/17 06:55 04/27/17 06:55 04/27/17 06:55 General appearance: Present: cooperative, A&O X 3, pleasant, no acute distress, obese, answers questions appropriately Internal Medicine: Result - Labs CBC & Chem 7: 04/27/17 05:58 04/27/17 05:58 Labs: Short CBC 04/27/17 Range/Units 05:58 WBC 8.1 (4.3-11.1) K/mcL Hgb 12.1 (11.5-15.4) g/dL Hct 36.4 (35.3-44.9) % Plt Count 226 (140-400) K/mcL Neutrophils # 4.2 (1.6-8.9) K/mcL BMP 04/27/17 05:58 Sodium 143 Potassium 4.0 Chloride 108 Carbon Dioxide 26 BUN 18 Creatinine 1.18 H Glucose 127 H Calcium 9.2 - ABG Interpretation ABG results: PT/INR, D-dimer PT 11.7 Seconds (9.4-12.1) 04/25/17 03:51 Consult Discharge Plan - Plan Referrals: Xi Arnold, BREAK UP WORKER [Advanced Practice Nurse] - 05/04/17 7:45 am <Den Ko - Last Filed: 04/27/17 15:41> Date of Encounter: 04/27/17 - Constitutional Vitals: Temp Pulse Resp BP Pulse Ox 97.9 F 77 16 118/75 96 04/27/17 15:32 04/27/17 15:32 04/27/17 15:32 04/27/17 15:32 04/27/17 15:32 Internal Medicine: Result - Labs CBC & Chem 7: 04/27/17 05:58 04/27/17 05:58 Labs: Short CBC 04/27/17 Range/Units 05:58 WBC 8.1 (4.3-11.1) K/mcL Hgb 12.1 (11.5-15.4) g/dL Hct 36.4 (35.3-44.9) % Plt Count 226 (140-400) K/mcL Neutrophils # 4.2 (1.6-8.9) K/mcL BMP 04/27/17 05:58 Sodium 143 Potassium 4.0 Chloride 108 Carbon Dioxide 26 BUN 18 Creatinine 1.18 H Glucose 127 H Calcium 9.2 - ABG Interpretation ABG results: PT/INR, D-dimer PT 11.7 Seconds (9.4-12.1) 04/25/17 03:51 - Attending Attestation I examined this patient on 04/27/17 and my medical decision-making was reviewed with the Resident Physician. I agree with the documented findings, disposition and treatment plan as described except to the extent set forth below. 81 F with CKD III, HTN, Afib admitted for LLE cellulitis with MRSA No new complains Physical exam: VSS, ambulatory, chest is CTAB, HS S1, S2 only with no m/g/r, abdomen is benign, LLE with clean wound dressing labs and Imaging reviewed: CBC WNL, Creatinine is at baseline, Wound culture with prelim MRSA, sensitivity is pending, Agree with resumption of Vacomycin, pharmacy to dose, continue Zosyn till final culture report, renal function is at baseline. Rest of details as in resident physician's documentation
[2017-04-27] MEDS ORDERED: Nicotine 14 MG PATCH.TD24 TD SCH (13:15)
[2017-04-27] MEDS: Miconazole 2% ointment 114 GM TUBE TP SCH (15:12)
[2017-04-27] MEDS: Acetaminophen 325 MG TABLET PO PRN (21:32)
[2017-04-27] MEDS: FETZIMA 20 MG PO SCH (22:36)
[2017-04-28] MEDS: Piperacillin/Tazobactam 3.375 GM in D5% in Water (Mini-Bag+) 100 ML IVPB SCH (06:36)
--- NOTE | 2017-04-28 08:43 | Discharge Summary ---
<Den Ko T - Last Filed: 04/28/17 12:58> Date of Encounter: 04/28/17 - Discharge Medications Prescriptions: Doxycycline 100 mg PO BID #20 capsule Home Medications: Acetaminophen [Tylenol] 500 mg PO BID PRN 04/24/17 [History] Aspirin Enteric Coated [Aspirin EC] 325 mg PO DAILY 04/24/17 [History] Carvedilol 3.125 mg PO BID 04/24/17 [History] Cholecalciferol (Vitamin D3) [Vitamin D3] 2,000 unit PO DAILY 04/24/17 [History] Furosemide [Lasix] 40 mg PO BID PRN 04/24/17 [History] Gabapentin [Neurontin] 300 mg PO BID 04/24/17 [History] Levomilnacipran HCl [Fetzima] 20 mg PO HS 04/24/17 [History] Losartan [Cozaar] 12.5 mg PO DAILY 04/24/17 [History] Multivit with Calcium,Iron,Min [One Daily Women's] 1 each PO DAILY 04/24/17 [ History] Omeprazole [PriLOSEC] 40 mg PO DAILY 04/24/17 [History] Polyethylene Glycol 3350 [MiraLAX] 17 gm PO DAILY 04/24/17 [History] Potassium Chloride [K-Tab ER] 20 meq PO BID PRN 04/24/17 [History] Pravastatin Sodium 10 mg PO HS 04/24/17 [History] Tizanidine HCl 2 mg PO TID PRN 04/24/17 [History] Tramadol HCl [Ultram] 50 mg PO BID PRN 04/24/17 [History] Vitamin B Complex [B Complex] 1 each PO DAILY 04/24/17 [History] dilTIAZem HCl [Diltiazem HCl] 120 mg PO BID 04/24/17 [History] Doxycycline 100 mg PO BID #20 capsule 04/28/17 [Rx] Allergies/Adverse Reactions: 3 Allergy/AdvReac Type Severity Reaction Status Date / Time No Known Allergies Allergy Verified 04/13/15 13:11 Procedures/tests Complete & Pending: Procedures Performed prior 72 hours Category Date Time Status EV ankle brachial index Routine Y 04/26/17 Completed Date of admission: 04/24/17 22:28 Primary care physician: PCP NONE Consults: 04/24/17 22:37 Consult to Wound Care [CONS] Routine Reason for Consult: Patient has open wound on left outer ankle which will require wound care daily. Call Completed: No 04/27/17 16:21 Consult to Arc Cutter [CONS] Routine Reason for SW Consult: To return to halfway; PT/OT assesses no rehab needed. - Patient Status Disposition: Home, Self-Care Condition: Good - Discharge Instructions Follow Up With: Xi Arnold BELTING CUTTER [Advanced Practice Nurse] - 05/04/17 7:45 am Additional Instructions: F/u with PCP in 2 weeks, daughter to help with wound care for 1 month, rx for wound care materials provided Hospital course: Ms. Jalloh is a 81 year old female - Time Spent with Patient Total time spent providing and/or coordinating discharge services: Greater than 30 minutes - Constitutional Vitals: Temp Pulse Resp BP Pulse Ox 98.4 F 78 14 131/87 97 04/28/17 11:52 04/28/17 11:52 04/28/17 11:52 04/28/17 11:52 04/28/17 11:52 - Attending Attestation I examined this patient on 04/28/17 and my medical decision-making was reviewed with the Resident Physician. I agree with the documented findings, disposition and treatment plan as described except to the extent set forth below. 81 F with CKD III, HTN, Afib admitted for LLE cellulitis with MRSA No new complains Physical exam: VSS, ambulatory, chest is CTAB, HS S1, S2 only with no m/g/r, abdomen is benign, LLE with clean wound dressing labs and Imaging reviewed: CBC WNL, Creatinine is at baseline, Wound culture with prelim MRSA, sensitivity noted Stable to be discharged home with family, complete 14 days of total antibiotic coverage, wound dressing at home Follow up with PCP and Podiatry Rest of details as in resident physician's documentation <Patel Sanchez - Last Filed: 04/28/17 14:02> Date of Encounter: 04/28/17 Time of Encounter: 09:00 - Discharge Diagnosis (1) Cellulitis and abscess of left leg Priority: Primary Status: Acute (2) Atrial fibrillation Priority: Secondary Status: Chronic Qualifiers: Atrial fibrillation type: chronic Qualified Code(s): I48.2 - Chronic atrial fibrillation (3) HLD (hyperlipidemia) Priority: Secondary Status: Chronic Qualifiers: Hyperlipidemia type: pure hypercholesterolemia Qualified Code(s): E78.00 - Pure hypercholesterolemia, unspecified; E78.0 - Pure hypercholesterolemia (4) HTN (hypertension) Priority: Secondary Status: Chronic Qualifiers: Hypertension type: essential hypertension Qualified Code(s): I10 - Essential (primary) hypertension (5) DVT prophylaxis Priority: Secondary Status: Acute (6) Arthritis Priority: Secondary Status: Chronic Procedures/tests Complete & Pending: Procedures Performed prior 72 hours Category Date Time Status CT lower leg LT w con [CT] Routine Cat Scan 04/25/17 10:30 Completed EV ankle brachial index Routine Y 04/26/17 Completed Date of admission: 04/24/17 22:28 Primary care physician: PCP NONE Consults: 04/24/17 22:37 Consult to Wound Care [CONS] Routine Reason for Consult: Patient has open wound on left outer ankle which will require wound care daily. Call Completed: No 04/27/17 16:21 Consult to Arc Cutter [CONS] Routine Reason for SW Consult: To return to halfway; PT/OT assesses no rehab needed. - Patient Status Functional capacity at discharge: independent ambulation Overall status at discharge: patient is progressing back to baseline - Diet and Activity Activity: resume usual activities as tolerated Diet: advance to your usual diet Hospital course: Ms. Jalloh is a 81 year old female admitted for left ankle cellulitis, wound culture positive for MRSA, sensitivity to doxycycline. CT with contrast negative for osteomyelitis. Blood cultures negative. Remained afebrile throughout hospital course, no elevated white count. Was on Vancomycin/Zosyn since day 1, held day 3 due to increasing creatinine, resumed day 4. Wound care teaching daughter wound dressing on day of discharge. To discharge on Doxycycline 100mg BID for 10 more days. Patient aware and understands, will follow-up with PCP in 2 weeks. Wound care to continue for 1 month at home with daughter. - Time Spent with Patient Total time spent providing and/or coordinating discharge services: - Constitutional Vitals: Temp Pulse Resp BP Pulse Ox 98.0 F 69 14 141/79 96 04/28/17 07:17 04/28/17 07:17 04/28/17 07:17 04/28/17 07:17 04/28/17 07:17 General appearance: Present: cooperative, A&O X 3, pleasant, no acute distress, obese, answers questions appropriately - Respiratory Respiratory exam: Present: CTAB - Cardiovascular Cardiovascular exam: Present: RRR, +S1, +S2 Additional comments: history of paroxsymal a-fib, not symptomatic - GI/Abdominal GI/Abdominal exam: Present: no peritoneal signs. Absent: tenderness - Extremities Exam Extremities exam: Present: normal capillary refill, warm. Absent: calf tenderness Additional comments: stage 1 ulcer left lateral malleolus well-healing borders, non-purulent
[2017-04-28 08:49] LABS: Basophils # 0.1 K/mcL (0.0-0.2); Basophils % 1.3 %; Eosinophils # 0.7 K/mcL (0.0-0.6); Eosinophils % 9.5 %; Hematocrit 37.8 % (35.3-44.9); Hemoglobin 12.4 g/dL (11.5-15.4); Immature Granulocytes % 0.3 % (0-4); Lymphocytes # 2.1 K/mcL (0.6-4.6); Lymphocytes % 28.8 %; Mean Corpuscular HGB Conc 32.8 g/dL (31.6-35.5); Mean Corpuscular Hemoglobin 29.7 pg (28.0-33.3); Mean Corpuscular Volume 90.4 fL (83.0-100.0); Mean Platelet Volume 9.5 fL (9.4-12.4); Monocytes # 0.5 K/mcL (0.0-1.3); Monocytes % 7.3 %; Neutrophils # 3.8 K/mcL (1.6-8.9); Platelet Count 233 K/mcL (140-400); Red Blood Count 4.18 M/mcL (3.82-4.97); Red Cell Distribution Width 13.6 % (11.5-14.5); Segmented Neutrophils % 52.8 %
[2017-04-28 09:15] LABS: Calcium 9.8 mg/dL (8.6-10.8); Potassium 4.1 mEq/L (3.5-4.5)
[2017-04-28 09:24] LABS: Vancomycin,Random 9.9 mcg/mL
[2017-04-28] MEDS: Diltiazem SR (12hr) 60 MG CAPSULE PO SCH (09:56)
[2017-04-28] MEDS: Aspirin Enteric Coated 325 MG Tablet PO SCH (09:56)
[2017-04-28] MEDS: Gabapentin 300 MG CAPSULE PO SCH (09:56)
[2017-04-28] MEDS: *HR* Heparin 5,000 UNIT/ML VIAL SQ SCH (09:57)
[2017-04-28] MEDS: Cholecalciferol (D-3) 1,000 UNIT TABLET PO SCH (09:59)
[2017-04-28] MEDS ORDERED: Vancomycin 1,000 MG in D5% in Water 250 ML IVPB ONE (11:00)
[2017-04-28 11:58] VITALS: BP 131/87
[2017-04-28] MEDS: Miconazole 2% ointment 114 GM TUBE TP SCH (12:16)
[2017-04-28] MEDS ORDERED: Aminoglycoside Consult 1 EACH MC ONE (14:51)
== END 2017-04-28 14:52 | disposition home or self-care (01) | DRG 603 ==
LOC: 3ANU 13:27 → EMEROO 13:27 → 3ANU 19:40 → SUATTDRO 22:28
PROVIDERS: ADMIT Internal Medicine; ATTEND Internal Medicine

== ENCOUNTER 2019-03-28 13:23 | Inpatient (IN) ==
[2019-03-28] MEDS ORDERED: Isovue-370 500 ML BOTTLE IVP ONE (13:44)
[2019-03-28] MEDS ORDERED: Ondansetron 4 MG/2 ML VIAL IVP ONE (13:46)
[2019-03-28] MEDS ORDERED: 0.9 % Sodium Chloride 1,000 ML IVC ONE (13:46)
--- NOTE | 2019-03-28 13:53 | Emergency Department Note ---
Disposition Clinical Impression: Partial small bowel obstruction Disposition: Admitted As Inpatient Condition: Fair Referrals: Xi Arnold [employer]PER [Primary Care Provider] - Forms: Work/School Release, ED Satisfaction Letter Time of Disposition: 15:03 General Adult HPI - General Chief complaint: ED Nausea/Vomiting/Diarrhea Stated complaint: Nausea, vomiting, dehydration Time Seen by Provider: 03/28/19 13:30 Source: patient, family Mode of arrival: ambulatory Limitations: no limitations Nursing Notes Reviewed: Yes Vital Signs Reviewed: Yes - History of Present Illness HPI Narrative: 83-year-old female with significant past medical history of atrial fibrillation currently on aspirin along with multiple abdominal surgeries presenting to the emergency department chief complaint of nausea and abdominal pain. According to the patient starting last evening she had multiple episodes of nonbloody nonbilious vomiting and started having periumbilical and epigastric abdominal pain. She went to her primary care office today and they were concerned for possible obstruction and provided her with a dose of Phenergan and had her come to the emergency department for further evaluation. Patient states she had 2 bowel movements this morning but required MiraLAX to have them. She also states she recently finished a course of Keflex for urinary tract infection on Monday, 3 days ago. Pain Scale: 4 - Related Data Home Medications Medication Instructions Recorded Confirmed Acetaminophen [Tylenol] 500 mg PO BID PRN 04/24/17 01/14/19 Aspirin Enteric Coated [Aspirin EC] 325 mg PO DAILY 04/24/17 01/14/19 Carvedilol 3.125 mg PO BID 04/24/17 01/14/19 Cholecalciferol (Vitamin D3) 2,000 unit PO DAILY 04/24/17 01/14/19 [Vitamin D3] Gabapentin [Neurontin] 300 mg PO BID 04/24/17 01/14/19 Losartan [Cozaar] 12.5 mg PO DAILY 04/24/17 01/14/19 Tizanidine HCl 2 mg PO BID PRN 04/24/17 01/14/19 dilTIAZem HCl [Diltiazem HCl] 120 mg PO BID 04/24/17 01/14/19 ALPRAZolam [Xanax 0.5 MG Tablet] 1 tab PO BID PRN 01/14/19 01/14/19 Calcium Carbonate [Calcium] 1 tab PO DAILY 01/14/19 01/14/19 Mirtazapine [Remeron] 1 tab PO HS 01/14/19 01/14/19 Furosemide [Lasix] 40 mg PO PRN 03/28/19 03/28/19 Pravastatin Sodium 10 mg PO 03/28/19 03/28/19 Allergies Allergy/AdvReac Type Severity Reaction Status Date / Time tramadol AdvReac Depression Verified 03/17/19 09:45 All systems ED: reviewed and negative except as stated. Constitutional: Denies: fever Eyes: Reports: as per HPI ENT ED: Reports: as per HPI Cardiovascular: Denies: chest pain Respiratory: Denies: dyspnea Gastrointestinal: Reports: abdominal pain, nausea, vomiting Genitourinary: Reports: as per HPI Musculoskeletal: Reports: as per HPI Integumentary: Reports: as per HPI Neurological: Reports: as per HPI Psychiatric: Reports: as per HPI Endocrine: Reports: as per HPI Hematological/Lymphatic: Reports: as per HPI Allergic/Immunologic: Reports: as per HPI Past Medical History - Past Medical History Attestation: Yes The following information was validated with the patient. Medical history: Reports: arthritis, atrial fibrillation, cancer, diabetes, GERD, hyperlipidemia, hypertension, renal disease Surgical history: Reports: appendectomy, cholecystectomy, herniorrhaphy, hysterectomy, orthopedic, other Psychiatric history: Reports: anxiety, depression - Social History Smoking Status: Former smoker Smokeless Tobacco Status: No Alcohol use: Reports: none Drug use: Reports: none Physical Exam - General Limitations: no limitations General appearance: alert, in no apparent distress - Head Head exam: atraumatic, normocephalic, normal inspection - Eye Eye exam: Absent: scleral icterus - ENT ENT exam: mucous membranes moist - Neck Neck exam: Present: full ROM - Chest Chest inspection: Present: symmetric chest wall rise - Respiratory Respiratory exam: Present: normal lung sounds bilaterally. Absent: respiratory distress, wheezes - Cardiovascular Cardiovascular exam: Present: regular rate, normal rhythm, normal heart sounds - Abdominal Exam Abdominal exam: Present: tenderness, scar (Multiple abdominal scars. Midline hernia.). Absent: guarding, rebound, rigidity - Extremities Exam Extremities exam: Present: full ROM - Neurological Exam Neurological exam: Present: alert, oriented X3 - Psychiatric Psychiatric exam: Present: normal affect, normal mood - Skin Skin exam: Present: warm Course Course Narrative: 83-year-old female presenting for abdominal pain, nausea and vomiting. Patient has had multiple abdominal surgeries. Transferred by her primary care physician to rule out obstruction. In the room she is alert and oriented 3 and hemodynamically stable. Physical exam is significant for diffusely tender abdomen. Midline hernia. Multiple abdominal scars that are well-healed. We will obtain laboratory analysis along with a CT of the abdomen and pelvis with IV contrast. Disposition pending. Patient agrees with this plan. - Reevaluation(s) Reevaluation #1: Patient laboratory analysis baseline. CT of the abdomen and pelvis concerning for partial bowel obstruction. I spoke with the surgeon on-call Dr. Guerra who is aware of the patient. We will place the patient nothing by mouth and start fluids. We will now admit the patient to the hospitalist service. Hospitalist agrees to accept the patient. Patient remains alert and oriented 3 and hemodynamically stable. Patient agrees with this plan. Vital Signs Temperature 98.7 F 03/28/19 13:24 Pulse Rate 100 03/28/19 13:24 Respiratory Rate 18 03/28/19 13:24 Blood Pressure 167/93 03/28/19 13:24 O2 Sat by Pulse Oximetry 97 03/28/19 13:24 Temperature 98.7 F 03/28/19 13:24 Pulse Rate 97 03/28/19 14:48 Respiratory Rate 18 03/28/19 14:48 Blood Pressure 159/69 03/28/19 14:48 O2 Sat by Pulse Oximetry 98 03/28/19 14:48 Oxygen Delivery Oxygen Delivery Room Air Medical Decision Making - Lab Data Result diagrams: 03/28/19 14:05 03/28/19 14:05 Lab Results 03/28/19 03/28/19 03/28/19 Range/Units 13:42 14:05 14:05 WBC 12.2 H (4.3-11.1) K/mcL RBC 4.78 (3.82-4.97) M/mcL Hgb 14.9 (11.5-15.4) g/dL Hct 44.0 (35.3-44.9) % MCV 92.1 (83.0-100.0) fL MCH 31.2 (28.0-33.3) pg MCHC 33.9 (31.6-35.5) g/dL RDW 12.9 (11.5-14.5) % Plt Count 280 (140-400) K/mcL MPV 9.8 (9.4-12.4) fL Immature Gran % 0.4 (0-4) % Seg Neutrophils % 84.3 % Lymphocytes % 9.4 % Monocytes % 5.2 % Eosinophils % 0.3 % Basophils % 0.4 % Neutrophils # 10.2 H (1.6-8.9) K/mcL Lymphocytes # 1.1 (0.6-4.6) K/mcL Monocytes # 0.6 (0.0-1.3) K/mcL Eosinophils # 0.0 (0.0-0.6) K/mcL Basophils # 0.1 (0.0-0.2) K/mcL Sodium 138 (136-145) mEq/L Potassium 4.1 (3.5-5.1) mEq/L Chloride 102 (98-107) mEq/L Carbon Dioxide 25 (23-29) mEq/L BUN 24 H (8-23) mg/dL Creatinine 1.08 (0.60-1.20) mg/dL Est GFR ( Amer) 59 L (> 60) Est GFR (Non-Af Amer) 48 L (> 60) BUN/Creatinine Ratio 22 (6-26) Glucose 177 H (70-105) mg/dL Calculated Osmolality 294 (280-300) Lactic Acid (0.5-2.2) mmol/L Calcium 10.1 (8.6-10.3) mg/dL Total Bilirubin 0.4 (0.3-1.0) mg/dL Direct Bilirubin 0.0 (0.0-0.2) mg/dL Indirect Bilirubin 0.4 (0.0-1.2) mg/dL AST 25 (13-39) Units/L ALT 15 (7-52) Units/L Alkaline Phosphatase 85 (34-104) Units/L Serum Total Protein 7.7 (6.4-8.9) g/dL Albumin 4.5 (3.5-5.7) g/dL Globulin 3.2 (2.4-3.5) g/dL Albumin/Globulin Ratio 1.4 (1.1-2.2) Lipase 9 L (11-82) Units/L Urine Color Yellow (Yellow) Urine Clarity Clear (Clear) Urine pH 5.5 (5.0-8.0) pH Units Ur Specific [place] > 1.030 H (1.010-1.025) Urine Protein >=300 H (Neg-Trace) mg/dL Urine Glucose (UA) Normal (Normal) mg/dL Urine Ketones Negative (Negative) mg/dL Urine Blood Negative (Negative) Urine Nitrite Negative (Negative) Urine Bilirubin Negative (Negative) Urine Urobilinogen Normal (Normal) mg/dL Ur Leukocyte Esterase Small H (Negative) Urine Microscopic WBC 0-3 (0-3) per hpf Ur Squamous Epith Cells Few (None-Few) per lpf Urine Bacteria Few (None-Few) per hpf Hyaline Casts Few (None-Few) per lpf Ur Culture Indicated? YES A (NO) 03/28/19 Range/Units 14:05 WBC (4.3-11.1) K/mcL RBC (3.82-4.97) M/mcL Hgb (11.5-15.4) g/dL Hct (35.3-44.9) % MCV (83.0-100.0) fL MCH (28.0-33.3) pg MCHC (31.6-35.5) g/dL RDW (11.5-14.5) % Plt Count (140-400) K/mcL MPV (9.4-12.4) fL Immature Gran % (0-4) % Seg Neutrophils % % Lymphocytes % % Monocytes % % Eosinophils % % Basophils % % Neutrophils # (1.6-8.9) K/mcL Lymphocytes # (0.6-4.6) K/mcL Monocytes # (0.0-1.3) K/mcL Eosinophils # (0.0-0.6) K/mcL Basophils # (0.0-0.2) K/mcL Sodium (136-145) mEq/L Potassium (3.5-5.1) mEq/L Chloride (98-107) mEq/L Carbon Dioxide (23-29) mEq/L BUN (8-23) mg/dL Creatinine (0.60-1.20) mg/dL Est GFR ( Amer) (> 60) Est GFR (Non-Af Amer) (> 60) BUN/Creatinine Ratio (6-26) Glucose (70-105) mg/dL Calculated Osmolality (280-300) Lactic Acid 2.0 (0.5-2.2) mmol/L Calcium (8.6-10.3) mg/dL Total Bilirubin (0.3-1.0) mg/dL Direct Bilirubin (0.0-0.2) mg/dL Indirect Bilirubin (0.0-1.2) mg/dL AST (13-39) Units/L ALT (7-52) Units/L Alkaline Phosphatase (34-104) Units/L Serum Total Protein (6.4-8.9) g/dL Albumin (3.5-5.7) g/dL Globulin (2.4-3.5) g/dL Albumin/Globulin Ratio (1.1-2.2) Lipase (11-82) Units/L Urine Color (Yellow) Urine Clarity (Clear) Urine pH (5.0-8.0) pH Units Ur Specific [place] (1.010-1.025) Urine Protein (Neg-Trace) mg/dL Urine Glucose (UA) (Normal) mg/dL Urine Ketones (Negative) mg/dL Urine Blood (Negative) Urine Nitrite (Negative) Urine Bilirubin (Negative) Urine Urobilinogen (Normal) mg/dL Ur Leukocyte Esterase (Negative) Urine Microscopic WBC (0-3) per hpf Ur Squamous Epith Cells (None-Few) per lpf Urine Bacteria (None-Few) per hpf Hyaline Casts (None-Few) per lpf Ur Culture Indicated? (NO) Attestation Statement - Attestation Attestation: Rebecca Andrade D.O., examined this patient and my medical decision-making was reviewed with the Resident Physician. I agree with the documented findings, disposition and treatment plan as described except to the extent set forth below.
[2019-03-28 13:55] LABS: Bilirubin,Urine Negative (Negative); Blood,Urine Negative (Negative); Clarity,Urine Clear (Clear); Color,Urine Yellow (Yellow); Glucose,Urine (UA) Normal (Normal); Ketones,Urine Negative (Negative); Leukocyte Esterase,Urine Small (Negative); Nitrite,Urine Negative (Negative); PH,Urine 5.5 pH Units (5.0-8.0); Protein,Urine >=300 mg/dL (Neg-Trace); Specific Gravity,Urine > 1.030 (1.010-1.025); Urobilinogen,Urine Normal (Normal)
--- NOTE | 2019-03-28 14:04 | Emergency Department Note ---
Disposition Clinical Impression: Partial small bowel obstruction Disposition: Admitted As Inpatient Condition: Fair Forms: ED Satisfaction Letter, Work/School Release Time of Disposition: 14:59 General Adult HPI - General Chief complaint: ED Nausea/Vomiting/Diarrhea Stated complaint: Nausea, vomiting, dehydration Time Seen by Provider: 03/28/19 13:30 Source: patient, family Mode of arrival: ambulatory Limitations: no limitations - History of Present Illness Pain Scale: 4 - Related Data Home Medications Medication Instructions Recorded Confirmed Acetaminophen [Tylenol] 500 mg PO BID PRN 04/24/17 01/14/19 Aspirin Enteric Coated [Aspirin EC] 325 mg PO DAILY 04/24/17 01/14/19 Carvedilol 3.125 mg PO BID 04/24/17 01/14/19 Cholecalciferol (Vitamin D3) 2,000 unit PO DAILY 04/24/17 01/14/19 [Vitamin D3] Gabapentin [Neurontin] 300 mg PO BID 04/24/17 01/14/19 Losartan [Cozaar] 12.5 mg PO DAILY 04/24/17 01/14/19 Polyethylene Glycol 3350 [MiraLAX] 17 gm PO DAILY 04/24/17 01/14/19 Tizanidine HCl 2 mg PO BID PRN 04/24/17 01/14/19 dilTIAZem HCl [Diltiazem HCl] 120 mg PO BID 04/24/17 01/14/19 ALPRAZolam [Xanax 0.5 MG Tablet] 1 tab PO BID 01/14/19 01/14/19 Calcium Carbonate [Calcium] 1 tab PO DAILY 01/14/19 01/14/19 Mirtazapine [Remeron] 1 tab PO HS 01/14/19 01/14/19 Previous Rx's Medication Instructions Recorded cephALEXin [Keflex] 500 mg PO QID #28 capsule 03/17/19 Allergies Allergy/AdvReac Type Severity Reaction Status Date / Time tramadol AdvReac Depression Verified 03/17/19 09:45 Past Medical History - Past Medical History Medical history: Reports: arthritis, atrial fibrillation, cancer, diabetes, GERD, hyperlipidemia, hypertension, renal disease Surgical history: Reports: appendectomy, cholecystectomy, herniorrhaphy, hysterectomy, orthopedic, other Psychiatric history: Reports: anxiety, depression - Social History Smoking Status: Former smoker Smokeless Tobacco Status: No Alcohol use: Reports: none Drug use: Reports: none Physical Exam - General Limitations: no limitations General appearance: alert Course Vital Signs Temperature 98.7 F 03/28/19 13:24 Pulse Rate 100 03/28/19 13:24 Respiratory Rate 18 03/28/19 13:24 Blood Pressure 167/93 03/28/19 13:24 O2 Sat by Pulse Oximetry 97 03/28/19 13:24 Temperature 98.7 F 03/28/19 13:24 Pulse Rate 97 03/28/19 14:48 Respiratory Rate 18 03/28/19 14:48 Blood Pressure 159/69 03/28/19 14:48 O2 Sat by Pulse Oximetry 98 03/28/19 14:48 Oxygen Delivery Oxygen Delivery Room Air Medical Decision Making - Lab Data Lab results reviewed: Yes I reviewed the patient's lab results. Result diagrams: 03/28/19 14:05 03/28/19 14:05 Lab Results 03/28/19 03/28/19 03/28/19 Range/Units 13:42 14:05 14:05 WBC 12.2 H (4.3-11.1) K/mcL RBC 4.78 (3.82-4.97) M/mcL Hgb 14.9 (11.5-15.4) g/dL Hct 44.0 (35.3-44.9) % MCV 92.1 (83.0-100.0) fL MCH 31.2 (28.0-33.3) pg MCHC 33.9 (31.6-35.5) g/dL RDW 12.9 (11.5-14.5) % Plt Count 280 (140-400) K/mcL MPV 9.8 (9.4-12.4) fL Immature Gran % 0.4 (0-4) % Seg Neutrophils % 84.3 % Lymphocytes % 9.4 % Monocytes % 5.2 % Eosinophils % 0.3 % Basophils % 0.4 % Neutrophils # 10.2 H (1.6-8.9) K/mcL Lymphocytes # 1.1 (0.6-4.6) K/mcL Monocytes # 0.6 (0.0-1.3) K/mcL Eosinophils # 0.0 (0.0-0.6) K/mcL Basophils # 0.1 (0.0-0.2) K/mcL Sodium 138 (136-145) mEq/L Potassium 4.1 (3.5-5.1) mEq/L Chloride 102 (98-107) mEq/L Carbon Dioxide 25 (23-29) mEq/L BUN 24 H (8-23) mg/dL Creatinine 1.08 (0.60-1.20) mg/dL Est GFR ( Amer) 59 L (> 60) Est GFR (Non-Af Amer) 48 L (> 60) BUN/Creatinine Ratio 22 (6-26) Glucose 177 H (70-105) mg/dL Calculated Osmolality 294 (280-300) Lactic Acid (0.5-2.2) mmol/L Calcium 10.1 (8.6-10.3) mg/dL Total Bilirubin 0.4 (0.3-1.0) mg/dL Direct Bilirubin 0.0 (0.0-0.2) mg/dL Indirect Bilirubin 0.4 (0.0-1.2) mg/dL AST 25 (13-39) Units/L ALT 15 (7-52) Units/L Alkaline Phosphatase 85 (34-104) Units/L Serum Total Protein 7.7 (6.4-8.9) g/dL Albumin 4.5 (3.5-5.7) g/dL Globulin 3.2 (2.4-3.5) g/dL Albumin/Globulin Ratio 1.4 (1.1-2.2) Lipase 9 L (11-82) Units/L Urine Color Yellow (Yellow) Urine Clarity Clear (Clear) Urine pH 5.5 (5.0-8.0) pH Units Ur Specific [place] > 1.030 H (1.010-1.025) Urine Protein >=300 H (Neg-Trace) mg/dL Urine Glucose (UA) Normal (Normal) mg/dL Urine Ketones Negative (Negative) mg/dL Urine Blood Negative (Negative) Urine Nitrite Negative (Negative) Urine Bilirubin Negative (Negative) Urine Urobilinogen Normal (Normal) mg/dL Ur Leukocyte Esterase Small H (Negative) Urine Microscopic WBC 0-3 (0-3) per hpf Ur Squamous Epith Cells Few (None-Few) per lpf Urine Bacteria Few (None-Few) per hpf Hyaline Casts Few (None-Few) per lpf Ur Culture Indicated? YES A (NO) 09/26/19 Range/Units 14:05 WBC (4.3-11.1) K/mcL RBC (3.82-4.97) M/mcL Hgb (11.5-15.4) g/dL Hct (35.3-44.9) % MCV (83.0-100.0) fL MCH (28.0-33.3) pg MCHC (31.6-35.5) g/dL RDW (11.5-14.5) % Plt Count (140-400) K/mcL MPV (9.4-12.4) fL Immature Gran % (0-4) % Seg Neutrophils % % Lymphocytes % % Monocytes % % Eosinophils % % Basophils % % Neutrophils # (1.6-8.9) K/mcL Lymphocytes # (0.6-4.6) K/mcL Monocytes # (0.0-1.3) K/mcL Eosinophils # (0.0-0.6) K/mcL Basophils # (0.0-0.2) K/mcL Sodium (136-145) mEq/L Potassium (3.5-5.1) mEq/L Chloride (98-107) mEq/L Carbon Dioxide (23-29) mEq/L BUN (8-23) mg/dL Creatinine (0.60-1.20) mg/dL Est GFR ( Amer) (> 60) Est GFR (Non-Af Amer) (> 60) BUN/Creatinine Ratio (6-26) Glucose (70-105) mg/dL Calculated Osmolality (280-300) Lactic Acid 2.0 (0.5-2.2) mmol/L Calcium (8.6-10.3) mg/dL Total Bilirubin (0.3-1.0) mg/dL Direct Bilirubin (0.0-0.2) mg/dL Indirect Bilirubin (0.0-1.2) mg/dL AST (13-39) Units/L ALT (7-52) Units/L Alkaline Phosphatase (34-104) Units/L Serum Total Protein (6.4-8.9) g/dL Albumin (3.5-5.7) g/dL Globulin (2.4-3.5) g/dL Albumin/Globulin Ratio (1.1-2.2) Lipase (11-82) Units/L Urine Color (Yellow) Urine Clarity (Clear) Urine pH (5.0-8.0) pH Units Ur Specific [place] (1.010-1.025) Urine Protein (Neg-Trace) mg/dL Urine Glucose (UA) (Normal) mg/dL Urine Ketones (Negative) mg/dL Urine Blood (Negative) Urine Nitrite (Negative) Urine Bilirubin (Negative) Urine Urobilinogen (Normal) mg/dL Ur Leukocyte Esterase (Negative) Urine Microscopic WBC (0-3) per hpf Ur Squamous Epith Cells (None-Few) per lpf Urine Bacteria (None-Few) per hpf Hyaline Casts (None-Few) per lpf Ur Culture Indicated? (NO) - Radiology Data Radiology results reviewed: Yes I reviewed the patient's radiology results. Abdomen/Pelvis CT 03/28/19 14:32 IMPRESSION: 1. Findings compatible with partial small bowel obstruction with dilated proximal and mid small bowel loops. This appears to be due to adhesions on the anterior abdominal/pelvic wall from previous ventral hernia repair with mesh. 2. No abscess or perforation seen at this time. 3. Normal appendix. 4. Status post cholecystectomy and hysterectomy. 5. Small hiatal hernia. Atherosclerotic vascular calcifications also noted. D/ / Marcelino Asher MD / Marcelino Asher MD Interpreting Provider: Marcelino Asher MD Attestation Statement - Attestation Attestation: ITyrell Andrade D.O., examined this patient and my medical decision-making was reviewed with the Resident Physician. I agree with the documented findings, disposition and treatment plan as described except to the extent set forth below. 83 year old female with prior numerous abdominal surgeries who presents with a chief complaint of abdominal pain nausea and vomiting. Pain began yesterday. She points to her epigastric and periumbilical area. She also reports nausea and vomiting that smells like "rotten meat". She states she had a bowel moveme nt this morning that she had take MiraLAX to have one. She has been belching frequently since this started. She denies prior history of bowel obstruction. No recent illnesses. No dysuria or hematuria. No other complaints General: Alert, no acute distress HENT: Normocephalic, Atraumatic Neck: No JVD Cardiovascular: Regular rate and rhythm. No appreciable murmurs Respiratory: Lungs CTAB. No wheezing/rhonchi Abdominal: Soft, patient has moderate epigastric and periumbilical tenderness. No peritoneal findings Extremities: No peripheral edema Neuro: Alert, Mentating appropriately, No focal deficits Skin: Warm, Dry Plan: Patient will get a CT now to evaluate for concern of bowel obstruction versus incarcerated hernia. Labs urinalysis. Patient given IV fluids and Zofran. CT w/ partial SBO. Labs are grossly unremarkable. Case discussed with Dr. Guerra who will see the patient in consultation. Admitted to the hospitalist.
[2019-03-28 14:11] LABS: Squamous Epithelial Cell,Urine Few per lpf (None-Few)
[2019-03-28 14:12] LABS: Hyaline Casts,Urine Few per lpf (None-Few); WBC,Urine 0-3 per hpf (0-3)
[2019-03-28 14:13] LABS: Bacteria,Urine Few per hpf (None-Few)
[2019-03-28 14:37] LABS: Basophils # 0.1 K/mcL (0.0-0.2); Basophils % 0.4 %; Eosinophils % 0.3 %; Hemoglobin 14.9 g/dL (11.5-15.4); Immature Granulocytes % 0.4 % (0-4); Lymphocytes # 1.1 K/mcL (0.6-4.6); Lymphocytes % 9.4 %; Mean Corpuscular HGB Conc 33.9 g/dL (31.6-35.5); Mean Corpuscular Hemoglobin 31.2 pg (28.0-33.3); Mean Corpuscular Volume 92.1 fL (83.0-100.0); Mean Platelet Volume 9.8 fL (9.4-12.4); Monocytes # 0.6 K/mcL (0.0-1.3); Monocytes % 5.2 %; Neutrophils # 10.2 K/mcL (1.6-8.9); Platelet Count 280 K/mcL (140-400); Red Blood Count 4.78 M/mcL (3.82-4.97); Red Cell Distribution Width 12.9 % (11.5-14.5); Segmented Neutrophils % 84.3 %; White Blood Count 12.2 K/mcL (4.3-11.1)
[2019-03-28 14:39] LABS: Bilirubin,Total 0.4 mg/dL (0.3-1.0); Calcium 10.1 mg/dL (8.6-10.3); Potassium 4.1 mEq/L (3.5-5.1)
[2019-03-28 14:40] LABS: Albumin 4.5 g/dL (3.5-5.7); Albumin/Globulin Ratio 1.4 (1.1-2.2); Bilirubin,Indirect 0.4 mg/dL (0.0-1.2); Globulin 3.2 g/dL (2.4-3.5); Total Protein 7.7 g/dL (6.4-8.9)
[2019-03-28] MEDS ORDERED: Ondansetron 4 MG/2 ML VIAL IVP PRN (15:20)
[2019-03-28] MEDS ORDERED: Naloxone 0.4 MG/ML INJ IVP PRN (15:20)
--- NOTE | 2019-03-28 15:20 | Internal Med History&Physical ---
Date of Encounter: 03/28/19 Time of Encounter: 15:08 Internal Medicine - H&P: HPI Chief complaint: Nausea, abd pain Admitted From: Emergency Dept History of present illness: Ny Jalloh is an 83 F w hx A-Fib, HTN, HLD, DM2, GERD, anx/dep, ovarian cancer s/p ragini/bso, obesity, who p/w nausea and abdominal pain x1 day. Pain began at 10:30p last night and is ongoing. Does not radiate, and is located mid and epigastric. Is unable to keep any food or fluids down, and throughout interview is having ongoing episodes of vomiting. Denies fevers. Went to PCP today who sent patient to ED. Has had numerous abd surgeries and has had diverticulitis, b ut never had an obstruction. In the ED, pt vitals T98.7, HR 100s, RR 18, SBP 160s, satting 97% on RA. Labs notable for WBC 12, Hb 15, BUN 24, Cr 1.1, BG 180, lipase 9. UA concentrated and w proteinuria. CT abd shows dilated proximal and mid small bowel loops felt due to adhesions on anterior wall at site of hernia repair, leading to partial SBO, without sign of abscess or perforation. PMH: as above PSH: appy, choly, herniorraphy, RAGINI SH: former smoker, no EtOH use FH: heart disease, no GI malignancies Past Med Surg Social Fam HX - Past Medical History Medical history: arthritis, atrial fibrillation, cancer, diabetes, GERD, hyperlipidemia, hypertension, renal disease Additional medical history: Ovarian Ca. DDD. diet controlled diabetes Psychiatric history: anxiety, depression - Past Surgical History Surgical History: appendectomy, cholecystectomy, herniorrhaphy, hysterectomy, orthopedic, other Additional surgical history: SCS implant. bilat eye. Left reverse TSR. stimulator. D&C - Social History Smoking Status: Former smoker Smokeless Tobacco Status: No Alcohol use: none Drug use: none - Family History Father Family Member Ethnicity: Non- Living Status: Hx Family Cancer: Yes (Kidney) Mother Family Member Ethnicity: Non- Living Status: Hx Family Cardiac Disorders: Yes (HD) Hx Family Neuromuscular Disorders: Yes (Parkinson disease) Brother Family Member Ethnicity: Non- Living Status: Hx Family Cardiac Disorders: Yes (Quad bypass) Hx Family Endocrine Disorder: Yes (DM) Sister Family Member Ethnicity: Non- Living Status: Hx Family Cancer: Yes (Lung) Grandmother Family Member Ethnicity: Non- Living Status: Hx Family Cardiac Disorders: Yes (CAD) Internal Medicine - H&P: Meds Acetaminophen [Tylenol] 500 mg PO BID PRN 04/24/17 [History] Aspirin Enteric Coated [Aspirin EC] 325 mg PO DAILY 04/24/17 [History] Carvedilol 3.125 mg PO BID 04/24/17 [History] Cholecalciferol (Vitamin D3) [Vitamin D3] 2,000 unit PO DAILY 04/24/17 [History] Gabapentin [Neurontin] 300 mg PO BID 04/24/17 [History] Losartan [Cozaar] 12.5 mg PO DAILY 04/24/17 [History] Tizanidine HCl 2 mg PO BID PRN 04/24/17 [History] dilTIAZem HCl [Diltiazem HCl] 120 mg PO BID 04/24/17 [History] ALPRAZolam [Xanax 0.5 MG Tablet] 1 tab PO BID PRN 01/14/19 [History] Calcium Carbonate [Calcium] 1 tab PO DAILY 01/14/19 [History] Mirtazapine [Remeron] 1 tab PO HS 01/14/19 [History] Furosemide [Lasix] 40 mg PO PRN 03/28/19 [History] Levomilnacipran HCl [Fetzima] 20 mg PO PRN 03/28/19 [History] Omeprazole [PriLOSEC] 40 mg PO DAILY PRN 03/28/19 [History] Pravastatin Sodium 10 mg PO 03/28/19 [History] Allergy/AdvReac Type Severity Reaction Status Date / Time tramadol AdvReac Depression Verified 03/17/19 09:45 All Systems PM: A 10-system review of systems was performed and is negative for pertinent findings except as documented above in the HPI. - Constitutional Vitals: Temp Pulse Resp BP Pulse Ox 98.7 F 97 18 159/69 98 03/28/19 13:24 03/28/19 14:48 03/28/19 14:48 03/28/19 14:48 03/28/19 14:48 Exam: General: NAD, good eye contact, elderly and uncomfortable appearing Head: Atraumatic, normocephalic. Face symmetric Eyes: EOMI, sclerae anicteric ENT: Mucous membranes dry. Normal oral mucosa. Trachea midline. Thoracic: No visible chest wall deformities. Normal breath sounds b/l, no wheezing or crackles Cardio: Normal S1 and S2, regular rhythm, tachycardic Abdomen: Firm but not rigid, not really tender to palpation, nondistended. Bowel sounds present. No rebound Extremities: Warm, well perfused. DP pulses 2+ b/l. No edema Skin: Intact. No rashes, bruises, or ulcers Neuro: Awake, fully oriented. Good memory, concentration, attention. Speech fluent. CN II-XII grossly intact. Strength 5/5 in b/l UE and LE Internal Med - H&P Results - Labs CBC & Chem 7: 03/28/19 14:05 03/28/19 14:05 Labs: Short CBC 03/28/19 Range/Units 14:05 WBC 12.2 H (4.3-11.1) K/mcL Hgb 14.9 (11.5-15.4) g/dL Hct 44.0 (35.3-44.9) % Plt Count 280 (140-400) K/mcL Neutrophils # 10.2 H (1.6-8.9) K/mcL BMP 03/28/19 14:05 Sodium 138 Potassium 4.1 Chloride 102 Carbon Dioxide 25 BUN 24 H Creatinine 1.08 Glucose 177 H Calcium 10.1 Liver Function 03/28/19 Range/Units 14:05 Total Bilirubin 0.4 (0.3-1.0) mg/dL Direct Bilirubin 0.0 (0.0-0.2) mg/dL AST 25 (13-39) Units/L ALT 15 (7-52) Units/L Alkaline Phosphatase 85 (34-104) Units/L Albumin 4.5 (3.5-5.7) g/dL Urine 03/28/19 Range/Units 13:42 Urine Color Yellow (Yellow) Urine Clarity Clear (Clear) Urine pH 5.5 (5.0-8.0) pH Units Ur Specific [place] > 1.030 H (1.010-1.025) Urine Protein >=300 H (Neg-Trace) mg/dL Urine Glucose (UA) Normal (Normal) mg/dL - Impressions ITS Impressions Abdomen/Pelvis CT 03/28/19 14:32 IMPRESSION: 1. Findings compatible with partial small bowel obstruction with dilated proximal and mid small bowel loops. This appears to be due to adhesions on the anterior abdominal/pelvic wall from previous ventral hernia repair with mesh. 2. No abscess or perforation seen at this time. 3. Normal appendix. 4. Status post cholecystectomy and hysterectomy. 5. Small hiatal hernia. Atherosclerotic vascular calcifications also noted. D/ / Marcelino Asher MD / Marcelino Asher MD Interpreting Provider: Marcelino Asher MD - Summary of Assessment and Plan Summary of Assessment and Plan: Ny Jalloh is an 83 F w hx A-Fib, HTN, HLD, DM2, GERD, anx/dep, ovarian cancer s/p ragini/bso, obesity, who p/w N/V, abd pain, tachycardia, leukocytosis, and CT showing dilated bowel loops, concerning for partial SBO. pSBO: - MIVF LR@125 - GenSurg consult - insert NG and place to LIAN[place] A-Fib: AC on ASA 325, rate on coreg 3.125 bid and cardizem 180, if unable to PO can use metoprolol 5 iv q6h prn HR>120 HTN: holding losartan HLD: holding statin DM2: accucheck q6h Anx/dep: home xanax (risky med in 83 yo), remeron, home supply of levomilnacipran (fetzima) Obesity: BMI 34 PPx: lovenox Tele: no Activity: up ad renetta FEN: NPO, MIVF LR@125 Lines: PIV Consults: GenSurg Code: Full Dispo: obs for pSBO, anticipate 1-2 days, will be homegoing
[2019-03-28] MEDS ORDERED: ALPRAZolam 0.5 MG TABLET PO PRN (15:23)
[2019-03-28] MEDS ORDERED: Lidocaine Jelly 11 ml Syringe MM STA (15:33)
--- NOTE | 2019-03-28 15:44 | AcuteCare Surgery Consult Note ---
<Ani Wild - Last Filed: 03/28/19 15:34> Date of Encounter: 03/28/19 Time of Encounter: 15:15 Assessment and Plan (1) Partial small bowel obstruction Current Visit: Yes Status: Acute Patient's exam and imaging are consistent with a partial small bowel obstruction. This is likely secondary to adhesions given her extensive abdominal surgical history. She appears uncomfortable and has had multiple episodes of vomiting during my assessment. She is recommended to have an NG tube placed for decompression and bowel rest. We will attempt conservative management at this time. Surgery will continue to follow along with you and make recommendations. She does have a history of atrial fibrillation and is on aspirin. If surgical intervention becomes imminent, she will require cardiovascular risk stratification. NG to LIWS (use lidocaine jelly for comfort) KUB after placement Chloraseptic Protnix Antiemetics Cares per primary team History of Present Illness Consult date: 03/28/19 (Dr. Javier Guerra) Reason for consult: other (small bowel obstruction) Requesting physician: Luna Sinha History of present illness: Surgery has been consulted for recommendations regarding partial small bowel obstruction patient's past medical, surgical, and social history has been reviewed with the patient at bedside and updated in the electronic medical record where indicated Ny is an 83-year-old female with pertinent past surgical history of dilation and curettage, appendectomy, hysterectomy for ovarian cancer, hernia repair 1991, cholecystectomy, polypectomy and hemorrhoidectomy, herniorrhaphy in 2004 and 2011 (pt is unclear of areas but was completed at [place]), and pertinent PMH of Gerd, diverticulitis,: polyps, her last colonoscopy was 2013. She reports taking MiraLAX on a daily basis for bowel movements and states her last bowel movement was this morning and normal for her. She presented to the emergency department on 03/28/2019 following abdominal pain that started at 10 PM last night. She states the pain was sharp, stabbing, and constant. She was able to follow sleep however around 3 AM she began having worsening abdominal pain that awoke her from the sleep, was generalized, 10 out of 10, and then followed by multiple episodes of vomiting. She denies any aggravating or alleviating factors. She denies fever, chills, headache, dizziness, black, bloody, or tarry stool. She reports she has just finished antibiotics for urinary tract infection reports multiple recurrent UTIs in the past several months. She reports a history of atrial fibrillation for which she takes on aspirin and has palpitations but otherwise denies chest pain. Her clinical course thus far has included a CT of the abdomen and pelvis with IV contrast and without oral which noted a partial small bowel obstruction with dilated proximal and mid-small bowel loops, appears to be due to adhesions on the anterior abdominal/pelvic wall, no abscess or perforation is seen the CT notes a normal appendix however patient reports history of an appendectomy in 1990. A small hiatal hernia is present. Her white blood cell count is elevated at 12.2. She has been admitted to the hospitalist service and surgery is following as a consult for partial small bowel obstruction. Past Med Surg Social Fam HX - Past Medical History Source: patient, old records reviewed Medical history: arthritis, atrial fibrillation, cancer, diabetes, GERD, hyperlipidemia, hypertension, renal disease Additional medical history: Ovarian Ca. DDD. diet controlled diabetes Psychiatric history: anxiety, depression - Past Surgical History Surgical History: appendectomy, cholecystectomy, herniorrhaphy, hysterectomy, orthopedic, other, MARSHA/BSO Additional surgical history: SCS implant. bilat eye. Left reverse TSR. stimulator. D&C - Social History Smoking Status: Former smoker Smokeless Tobacco Status: No Alcohol use: none Drug use: none Occupational status: unemployed Current living situation: Home - Independent - Family History Father Family Member Ethnicity: Non- Living Status: Hx Family Cancer: Yes (Kidney) Mother Family Member Ethnicity: Non- Living Status: Hx Family Cardiac Disorders: Yes (HD) Hx Family Neuromuscular Disorders: Yes (Parkinson disease) Brother Family Member Ethnicity: Non- Living Status: Hx Family Cardiac Disorders: Yes (Quad bypass) Hx Family Endocrine Disorder: Yes (DM) Sister Family Member Ethnicity: Non- Living Status: Hx Family Cancer: Yes (Lung) Grandmother Family Member Ethnicity: Non- Living Status: Hx Family Cardiac Disorders: Yes (CAD) Medications and Allergies Acetaminophen [Tylenol] 500 mg PO BID PRN 04/24/17 [History] Aspirin Enteric Coated [Aspirin EC] 325 mg PO DAILY 04/24/17 [History] Carvedilol 3.125 mg PO BIDWM 04/24/17 [History] Cholecalciferol (Vitamin D3) [Vitamin D3] 2,000 unit PO DAILY 04/24/17 [History] Gabapentin [Neurontin] 300 mg PO BID 04/24/17 [History] Losartan [Cozaar] 12.5 mg PO DAILY 04/24/17 [History] Tizanidine HCl 2 mg PO BID PRN 04/24/17 [History] dilTIAZem HCl [Diltiazem HCl] 120 mg PO BID 04/24/17 [History] ALPRAZolam [Xanax 0.5 MG Tablet] 0.5 mg PO BID PRN 01/14/19 [History] Calcium Carbonate [Calcium] 600 mg PO DAILY 01/14/19 [History] Mirtazapine [Remeron] 15 mg PO HS 01/14/19 [History] Furosemide [Lasix] 40 mg PO DAILY PRN 03/28/19 [History] Levomilnacipran HCl [Fetzima] 20 mg PO DAILY 03/28/19 [History] Omeprazole [PriLOSEC] 40 mg PO DAILY PRN 03/28/19 [History] Pravastatin Sodium 10 mg PO DAILY 03/28/19 [History] 3 Allergy/AdvReac Type Severity Reaction Status Date / Time tramadol AdvReac Depression Verified 03/17/19 09:45 Review of Systems All systems PM: reviewed and no additional remarkable complaints except as stated All systems PM: The remainder of the systems were reviewed and are negative General Surgery Exam Initial Vital Signs Temp Pulse Resp BP Pulse Ox 98.7 F 100 18 167/93 97 03/28/19 13:24 03/28/19 13:24 03/28/19 13:24 03/28/19 13:24 03/28/19 13:24 - General physical appearance well nourished, moderate distress (Ill appearing, multiple episodes of vomiting during my assessment) - ENT dentures, atraumatic, normocephalic - Respiratory other (Decreased clear breath sounds) - Cardiovascular Additional Comments: Irregularly irregular, systolic murmur noted - Abdomen Abdomen general surgery: Present: bowel sounds present (High-pitched), soft, distended, tender Abdominal Tenderness: Present: diffusely - Integumentary Integumentary general surgery: Present: warm and dry - Neurologic Present: normal sensation - Musculoskeletal Present: normal posture - Psychiatric Psychiatric general surgery: Present: A&Ox3 Exam Initial Vital Signs Temp Pulse Resp BP Pulse Ox 98.7 F 100 18 167/93 97 03/28/19 13:24 03/28/19 13:24 03/28/19 13:24 03/28/19 13:24 03/28/19 13:24 Results - Labs 03/28/19 14:05 03/28/19 14:05 Abnormal lab results WBC 12.2 K/mcL (4.3-11.1) H 03/28/19 14:05 Neutrophils # 10.2 K/mcL (1.6-8.9) H 03/28/19 14:05 BUN 24 mg/dL (8-23) H 03/28/19 14:05 Est GFR ( Amer) 59 (> 60) L 03/28/19 14:05 Est GFR (Non-Af Amer) 48 (> 60) L 03/28/19 14:05 Glucose 177 mg/dL (70-105) H 03/28/19 14:05 Lipase 9 Units/L (11-82) L 03/28/19 14:05 Ur Specific [place] > 1.030 (1.010-1.025) H 03/28/19 13:42 Urine Protein >=300 mg/dL (Neg-Trace) H 03/28/19 13:42 Ur Leukocyte Esterase Small (Negative) H 03/28/19 13:42 Ur Culture Indicated? YES (NO) A 03/28/19 13:42 Diabetes panel 03/28/19 Range/Units 14:05 Sodium 138 (136-145) mEq/L Potassium 4.1 (3.5-5.1) mEq/L Chloride 102 (98-107) mEq/L Carbon Dioxide 25 (23-29) mEq/L BUN 24 H (8-23) mg/dL Creatinine 1.08 (0.60-1.20) mg/dL Glucose 177 H (70-105) mg/dL Calcium 10.1 (8.6-10.3) mg/dL AST 25 (13-39) Units/L ALT 15 (7-52) Units/L Alkaline Phosphatase 85 (34-104) Units/L Albumin 4.5 (3.5-5.7) g/dL Calcium panel 03/28/19 Range/Units 14:05 Calcium 10.1 (8.6-10.3) mg/dL Albumin 4.5 (3.5-5.7) g/dL Pituitary panel 03/28/19 Range/Units 14:05 Sodium 138 (136-145) mEq/L Potassium 4.1 (3.5-5.1) mEq/L Chloride 102 (98-107) mEq/L Carbon Dioxide 25 (23-29) mEq/L BUN 24 H (8-23) mg/dL Creatinine 1.08 (0.60-1.20) mg/dL Glucose 177 H (70-105) mg/dL Calcium 10.1 (8.6-10.3) mg/dL Adrenal panel 03/28/19 Range/Units 14:05 Sodium 138 (136-145) mEq/L Potassium 4.1 (3.5-5.1) mEq/L Chloride 102 (98-107) mEq/L Carbon Dioxide 25 (23-29) mEq/L BUN 24 H (8-23) mg/dL Creatinine 1.08 (0.60-1.20) mg/dL Glucose 177 H (70-105) mg/dL Calcium 10.1 (8.6-10.3) mg/dL Total Bilirubin 0.4 (0.3-1.0) mg/dL AST 25 (13-39) Units/L ALT 15 (7-52) Units/L Alkaline Phosphatase 85 (34-104) Units/L Albumin 4.5 (3.5-5.7) g/dL All other labs normal. - Imaging CT scan - abdomen: report reviewed, image reviewed CT scan - pelvis: report reviewed, image reviewed Consult Discharge Plan - Plan Referrals: Xi Arnold, MECH[employer] DES[employer]TER [Primary Care Provider] - <Javier Guerra - Last Filed: 03/28/19 16:48> Date of Encounter: 03/28/19 Review of Systems All systems PM: The remainder of the systems were reviewed and are negative General Surgery Exam Initial Vital Signs Temp Pulse Resp BP Pulse Ox 98.7 F 100 18 167/93 97 03/28/19 13:24 03/28/19 13:24 03/28/19 13:24 03/28/19 13:24 03/28/19 13:24 Exam Initial Vital Signs Temp Pulse Resp BP Pulse Ox 98.7 F 100 18 167/93 97 03/28/19 13:24 03/28/19 13:24 03/28/19 13:24 03/28/19 13:24 03/28/19 13:24 Results - Labs 03/28/19 14:05 03/28/19 14:05 Abnormal lab results WBC 12.2 K/mcL (4.3-11.1) H 03/28/19 14:05 Neutrophils # 10.2 K/mcL (1.6-8.9) H 03/28/19 14:05 BUN 24 mg/dL (8-23) H 03/28/19 14:05 Est GFR ( Amer) 59 (> 60) L 03/28/19 14:05 Est GFR (Non-Af Amer) 48 (> 60) L 03/28/19 14:05 Glucose 177 mg/dL (70-105) H 03/28/19 14:05 Lipase 9 Units/L (11-82) L 03/28/19 14:05 Ur Specific [place] > 1.030 (1.010-1.025) H 03/28/19 13:42 Urine Protein >=300 mg/dL (Neg-Trace) H 03/28/19 13:42 Ur Leukocyte Esterase Small (Negative) H 03/28/19 13:42 Ur Culture Indicated? YES (NO) A 03/28/19 13:42 Diabetes panel 03/28/19 Range/Units 14:05 Sodium 138 (136-145) mEq/L Potassium 4.1 (3.5-5.1) mEq/L Chloride 102 (98-107) mEq/L Carbon Dioxide 25 (23-29) mEq/L BUN 24 H (8-23) mg/dL Creatinine 1.08 (0.60-1.20) mg/dL Glucose 177 H (70-105) mg/dL Calcium 10.1 (8.6-10.3) mg/dL AST 25 (13-39) Units/L ALT 15 (7-52) Units/L Alkaline Phosphatase 85 (34-104) Units/L Albumin 4.5 (3.5-5.7) g/dL Calcium panel 03/28/19 Range/Units 14:05 Calcium 10.1 (8.6-10.3) mg/dL Albumin 4.5 (3.5-5.7) g/dL Pituitary panel 03/28/19 Range/Units 14:05 Sodium 138 (136-145) mEq/L Potassium 4.1 (3.5-5.1) mEq/L Chloride 102 (98-107) mEq/L Carbon Dioxide 25 (23-29) mEq/L BUN 24 H (8-23) mg/dL Creatinine 1.08 (0.60-1.20) mg/dL Glucose 177 H (70-105) mg/dL Calcium 10.1 (8.6-10.3) mg/dL Adrenal panel 03/28/19 Range/Units 14:05 Sodium 138 (136-145) mEq/L Potassium 4.1 (3.5-5.1) mEq/L Chloride 102 (98-107) mEq/L Carbon Dioxide 25 (23-29) mEq/L BUN 24 H (8-23) mg/dL Creatinine 1.08 (0.60-1.20) mg/dL Glucose 177 H (70-105) mg/dL Calcium 10.1 (8.6-10.3) mg/dL Total Bilirubin 0.4 (0.3-1.0) mg/dL AST 25 (13-39) Units/L ALT 15 (7-52) Units/L Alkaline Phosphatase 85 (34-104) Units/L Albumin 4.5 (3.5-5.7) g/dL All other labs normal. - Attending Attestation I have personally performed a face to face evaluation on this patient. I have reviewed and agree with the care plan. History and Exam by me shows: The patient is seen and evaluated. I personally reviewed CAT scan of the abdomen. As a very concerning diameter change from proximal and distal small bowel. The patient's had multiple previous abdominal operations. We will attempt conservative management nasogastric tube drainage as well as IV hydration to see if the high-grade partial bowel obstruction will resolve without surgery Javier Guerra MD FACS
[2019-03-28] MEDS ORDERED: Saliva Stimulant 100ml BOTTLE PO PRN (15:51)
[2019-03-28] MEDS ORDERED: Chloraseptic Spray 177 ML BOTTLE MM PRN (15:51)
[2019-03-28] MEDS: Pantoprazole 40 MG VIAL IVP SCH (18:55)
[2019-03-28] MEDS: Ringers Solution, Lactated 1,000 ML IVC SCH (19:53)
[2019-03-28] MEDS: Gabapentin 300 MG CAPSULE PO SCH (20:44)
[2019-03-28] MEDS: Mirtazapine 15 MG TABLET PO SCH (20:44)
[2019-03-28] MEDS: dilTIAZem HCl 60 MG TABLET PO SCH (20:44)
[2019-03-28] MEDS ORDERED: *HR* Promethazine 25 MG/ML VIAL IVP ONE (22:41)
[2019-03-28] MEDS ORDERED: *HR* LORazepam 2 MG/ML VIAL IVP ONE (22:49)
[2019-03-29] MEDS: Ringers Solution, Lactated 1,000 ML IVC SCH (03:54)
[2019-03-29 04:32] LABS: Hemoglobin 13.8 g/dL (11.5-15.4); Mean Corpuscular HGB Conc 33.7 g/dL (31.6-35.5); Mean Corpuscular Hemoglobin 30.7 pg (28.0-33.3); Mean Corpuscular Volume 91.1 fL (83.0-100.0); Mean Platelet Volume 9.6 fL (9.4-12.4); Platelet Count 238 K/mcL (140-400); Red Cell Distribution Width 13.2 % (11.5-14.5); White Blood Count 9.8 K/mcL (4.3-11.1)
[2019-03-29 04:38] LABS: BUN/Creatinine Ratio 21 (6-26); Blood Urea Nitrogen 18 mg/dL (8-23); Calcium 9.1 mg/dL (8.6-10.3); Carbon Dioxide 26 mEq/L (23-29); Chloride 108 mEq/L (98-107); Glucose 124 mg/dL (70-105); Magnesium 1.9 mg/dL (1.6-2.6); Osmolality,Calculated 291 (280-300); Potassium 4.1 mEq/L (3.5-5.1); Sodium 139 mEq/L (136-145); eGFR For African Americans > 60 (> 60); eGFR For Non-African Americans > 60 (> 60)
[2019-03-29] MEDS: dilTIAZem HCl 60 MG TABLET PO SCH ×2 (08:46→20:30)
[2019-03-29] MEDS: Aspirin Enteric Coated 325 MG Tablet PO SCH (08:46)
[2019-03-29] MEDS: Gabapentin 300 MG CAPSULE PO SCH ×2 (08:47→20:30)
[2019-03-29] MEDS: *HR* Metoprolol 5 MG/5 ML VIAL IVP SCH ×4 (09:34→23:51)
[2019-03-29] MEDS: Pantoprazole 40 MG VIAL IVP SCH (09:55)
--- NOTE | 2019-03-29 11:32 | Internal Med Progress Note ---
Hospitalist Progress Note - Encounter Date of Encounter: 03/29/19 Time of Encounter: 09:45 - Subjective Interval History: Reports improvement in her abdominal pain and distention. Nausea also subsided. Also had 2-3 BMs since the admission. No fever overnight. - Exam Vitals: Temp Pulse Resp BP Pulse Ox 98.3 F 90 16 151/88 96 03/29/19 11:04 03/29/19 11:04 03/29/19 11:04 03/29/19 11:04 03/29/19 11:04 Exam: General: Mild distress, alert and oriented 3 Thoracic: No visible chest wall deformities. Normal breath sounds b/l, no wheezing or crackles Cardio: Normal S1 and S2, irregular rhythm, tachycardic Abdomen: Mildly distended but soft, nontender. Active bowel sounds Extremities: Warm, well perfused. DP pulses 2+ b/l. No edema Skin: Intact. No rashes, bruises, or ulcers Neuro: Nonfocal - Assessment and Plan (1) Partial small bowel obstruction Current Visit: Yes Status: Acute Assessment and Plan: clinically improving on IVF and NGT with LIWS follow with surgery, NPO till then (2) Atrial fibrillation Current Visit: Yes Status: Chronic Assessment and Plan: Currently nothing by mouth due to small bowel obstruction as above. Will switch beta rayne to schedule IV Lopressor 2.5 mg every 6H Resume home meds once able to take by mouth Not on anticoagulation at home, continue aspirin (3) HTN (hypertension) Current Visit: No Status: Chronic Assessment and Plan: Home meds on hold due to small bowel obstruction, IV Lopressor as above (4) Diabetes Current Visit: Yes Status: Chronic Assessment and Plan: A1c 6.9 in 12/2018, not on meds at home low dose sliding scale coverage (5) Obesity (BMI 30.0-34.9) Current Visit: Yes Status: Acute Assessment and Plan: Lifestyle modifications emphasized (6) DVT prophylaxis Current Visit: No Status: Acute Assessment and Plan: Lovenox - Time Spent with Patient Total time spent is greater than 50% in coordination of care (as documented) at patient's floor/unit and/or counseling patient: 25 - 35 minutes Plan of Care Discussed with: patient Internal Medicine: Result - Labs CBC & Chem 7: 03/29/19 04:04 03/29/19 04:04 Labs: Short CBC 03/28/19 03/29/19 Range/Units 14:05 04:04 WBC 12.2 H 9.8 (4.3-11.1) K/mcL Hgb 14.9 13.8 (11.5-15.4) g/dL Hct 44.0 41.0 (35.3-44.9) % Plt Count 280 238 (140-400) K/mcL Neutrophils # 10.2 H (1.6-8.9) K/mcL BMP 03/28/19 03/29/19 14:05 04:04 Sodium 138 139 Potassium 4.1 4.1 Chloride 102 108 H Carbon Dioxide 25 26 BUN 24 H 18 Creatinine 1.08 0.87 Glucose 177 H 124 H Calcium 10.1 9.1 Liver Function 03/28/19 Range/Units 14:05 Total Bilirubin 0.4 (0.3-1.0) mg/dL Direct Bilirubin 0.0 (0.0-0.2) mg/dL AST 25 (13-39) Units/L ALT 15 (7-52) Units/L Alkaline Phosphatase 85 (34-104) Units/L Albumin 4.5 (3.5-5.7) g/dL Urine 03/28/19 Range/Units 13:42 Urine Color Yellow (Yellow) Urine Clarity Clear (Clear) Urine pH 5.5 (5.0-8.0) pH Units Ur Specific [place] > 1.030 H (1.010-1.025) Urine Protein >=300 H (Neg-Trace) mg/dL Urine Glucose (UA) Normal (Normal) mg/dL - Impressions Impressions Abdomen/Pelvis CT 03/28/19 14:32 IMPRESSION: 1. Findings compatible with partial small bowel obstruction with dilated proximal and mid small bowel loops. This appears to be due to adhesions on the anterior abdominal/pelvic wall from previous ventral hernia repair with mesh. 2. No abscess or perforation seen at this time. 3. Normal appendix. 4. Status post cholecystectomy and hysterectomy. 5. Small hiatal hernia. Atherosclerotic vascular calcifications also noted. D/ / Marcelino Asher MD / Marcelino Asher MD Interpreting Provider: Marcelino Asher MD X-Ray 03/28/19 15:57 IMPRESSION: 1. The NG tube tip and side port are noted in the gastric fundus. D/ / Iban Camara MD / Iban Camara MD Interpreting Provider: Iban Camara MD Consult Discharge Plan - Plan Referrals: Xi Arnold, JACK WINDER [Primary Care Provider] - (2) Atrial fibrillation Qualifiers: Atrial fibrillation type: chronic Qualified Code(s): I48.2 - Chronic atrial fibrillation (3) HTN (hypertension) Qualifiers: Hypertension type: essential hypertension Qualified Code(s): I10 - Essential (primary) hypertension (4) Diabetes Qualifiers: Diabetes mellitus type: type 2 Diabetes mellitus snf insulin use: without snf use Diabetes mellitus complication status: without complication Qualified Code(s): E11.9 - Type 2 diabetes mellitus without complications
--- NOTE | 2019-03-29 14:44 | AcuteCareSurgery Progress Note ---
<Ani Wild - Last Filed: 03/29/19 14:37> Date of Encounter: 03/29/19 Time of Encounter: 14:37 - Assessment and Plan (1) Partial small bowel obstruction Current Visit: Yes Status: Acute Pt reports two formed hard BMs. 1100 ml since NG inserted yesterday at 1600. Denies flatus. She has continued pSBO. Continue NG to LIWS, may have limited ice chips; otherwise, continue NPO. SBFT with gastrograffin ordered for am. Cares per primary team Subjective Patient reports: no new complaints, feels better, pain is less, voiding w/o difficulty, no flatus, bowel movement (hard firmed stool), afebrile (Nausea improved) Objective Vital Signs - Last 8 Hours Temp Pulse Resp BP Pulse Ox 03/29/19 11:04 98.3 F 90 16 151/88 96 03/29/19 06:53 98.3 F 119 16 147/79 92 Intake and Output 03/28/19 03/29/19 03/29/19 23:59 07:59 15:59 Intake Total 0 / 1000 1000 / 1000 Output Total 400 / 400 0 / 700 700 / 700 Balance -400 / 600 1000 / 300 -700 / 300 Intake: IV Fluids 1000 / 1000 Lactated Ringers 1,000 ML @ 125 1000 / 1000 mls/hr IVC .Q8H NELA Rx#: [id number] Oral 0 / 0 Output: Urine 0 / 0 0 / 0 Gastric Tube Lavage Amount 700 / 700 Left Nare 700 / 700 Gastric Drainage 400 / 400 Other: Meal npo Stool Size Small Stool Consistency formed Stool Color Brown # Bowel Movements 1 Weight 88 kg Blood Glucose* 151 108 126 Patient Weight 03/29/19 23:59 Weight 88 kg - General physical appearance no distress, no pain - ENT normal nares (NG secured left nares), atraumatic, normocephalic - Neck Neck exam: trachea midline - Respiratory normal expansion, normal respiratory effort - Cardiovascular Cardiovascular exam: Present: irregular rhythm - Abdomen Abdomen: Present: bowel sounds present (hypoactive; tinkling), soft, non tender - Labs 03/29/19 04:04 03/29/19 04:04 Diabetes panel 03/28/19 03/29/19 Range/Units 14:05 04:04 Sodium 138 139 (136-145) mEq/L Potassium 4.1 4.1 (3.5-5.1) mEq/L Chloride 102 108 H (98-107) mEq/L Carbon Dioxide 25 26 (23-29) mEq/L BUN 24 H 18 (8-23) mg/dL Creatinine 1.08 0.87 (0.60-1.20) mg/dL Glucose 177 H 124 H (70-105) mg/dL Calcium 10.1 9.1 (8.6-10.3) mg/dL AST 25 (13-39) Units/L ALT 15 (7-52) Units/L Alkaline Phosphatase 85 (34-104) Units/L Albumin 4.5 (3.5-5.7) g/dL Calcium panel 03/28/19 03/29/19 Range/Units 14:05 04:04 Calcium 10.1 9.1 (8.6-10.3) mg/dL Albumin 4.5 (3.5-5.7) g/dL Pituitary panel 03/28/19 03/29/19 Range/Units 14:05 04:04 Sodium 138 139 (136-145) mEq/L Potassium 4.1 4.1 (3.5-5.1) mEq/L Chloride 102 108 H (98-107) mEq/L Carbon Dioxide 25 26 (23-29) mEq/L BUN 24 H 18 (8-23) mg/dL Creatinine 1.08 0.87 (0.60-1.20) mg/dL Glucose 177 H 124 H (70-105) mg/dL Calcium 10.1 9.1 (8.6-10.3) mg/dL Adrenal panel 03/28/19 03/29/19 Range/Units 14:05 04:04 Sodium 138 139 (136-145) mEq/L Potassium 4.1 4.1 (3.5-5.1) mEq/L Chloride 102 108 H (98-107) mEq/L Carbon Dioxide 25 26 (23-29) mEq/L BUN 24 H 18 (8-23) mg/dL Creatinine 1.08 0.87 (0.60-1.20) mg/dL Glucose 177 H 124 H (70-105) mg/dL Calcium 10.1 9.1 (8.6-10.3) mg/dL Total Bilirubin 0.4 (0.3-1.0) mg/dL AST 25 (13-39) Units/L ALT 15 (7-52) Units/L Alkaline Phosphatase 85 (34-104) Units/L Albumin 4.5 (3.5-5.7) g/dL Consult Discharge Plan - Plan Referrals: Xi Arnold, [employer]MAK[employer] [Primary Care Provider] - <Juan Carlos SmithOsbaldo F - Last Filed: 03/29/19 18:52> Date of Encounter: 03/29/19 Objective Vital Signs - Last 8 Hours Temp Pulse Resp BP Pulse Ox 03/29/19 15:16 98.5 F 100 16 152/83 96 03/29/19 11:04 98.3 F 90 16 151/88 96 Intake and Output 03/29/19 03/29/19 03/29/19 07:59 15:59 23:59 Intake Total 1000 / 1000 0 / 1000 Output Total 0 / 700 700 / 700 Balance 1000 / 300 -700 / 300 0 / 300 Intake: IV Fluids 1000 / 1000 Lactated Ringers 1,000 ML @ 125 1000 / 1000 mls/hr IVC .Q8H NELA Rx#: [id number] Oral 0 / 0 Output: Urine 0 / 0 0 / 0 Gastric Tube Lavage Amount 700 / 700 Left Nare 700 / 700 Other: Meal npo Stool Size Small Stool Consistency formed Stool Color Brown # Bowel Movements 1 Weight 88 kg Blood Glucose* 108 126 113 Patient Weight 03/29/19 23:59 Weight 88 kg - Labs 03/29/19 04:04 03/29/19 04:04 Diabetes panel 03/29/19 Range/Units 04:04 Sodium 139 (136-145) mEq/L Potassium 4.1 (3.5-5.1) mEq/L Chloride 108 H (98-107) mEq/L Carbon Dioxide 26 (23-29) mEq/L BUN 18 (8-23) mg/dL Creatinine 0.87 (0.60-1.20) mg/dL Glucose 124 H (70-105) mg/dL Calcium 9.1 (8.6-10.3) mg/dL Calcium panel 03/29/19 Range/Units 04:04 Calcium 9.1 (8.6-10.3) mg/dL Pituitary panel 03/29/19 Range/Units 04:04 Sodium 139 (136-145) mEq/L Potassium 4.1 (3.5-5.1) mEq/L Chloride 108 H (98-107) mEq/L Carbon Dioxide 26 (23-29) mEq/L BUN 18 (8-23) mg/dL Creatinine 0.87 (0.60-1.20) mg/dL Glucose 124 H (70-105) mg/dL Calcium 9.1 (8.6-10.3) mg/dL Adrenal panel 03/29/19 Range/Units 04:04 Sodium 139 (136-145) mEq/L Potassium 4.1 (3.5-5.1) mEq/L Chloride 108 H (98-107) mEq/L Carbon Dioxide 26 (23-29) mEq/L BUN 18 (8-23) mg/dL Creatinine 0.87 (0.60-1.20) mg/dL Glucose 124 H (70-105) mg/dL Calcium 9.1 (8.6-10.3) mg/dL - Attending Attestation I examined this patient and my medical decision-making was reviewed with the TOOLMAKER [employer]. I agree with the documented findings, disposition and treatment plan as described to the extent set forth below. Pt responding well to conservative management of SBO. Will continue IVF, NPO, NGT. Will follow closely.
[2019-03-29] MEDS: *HR* Heparin 5,000 UNIT/ML VIAL SQ SCH (17:43)
[2019-03-29] MEDS: Mirtazapine 15 MG TABLET PO SCH (20:30)
[2019-03-29] MEDS ORDERED: *HR* LORazepam 2 MG/ML VIAL IVP ONE (22:26)
[2019-03-30] MEDS: Ringers Solution, Lactated 1,000 ML IVC SCH ×2 (00:38→17:40)
[2019-03-30] MEDS: *HR* Metoprolol 5 MG/5 ML VIAL IVP SCH ×4 (05:12→23:45)
[2019-03-30] MEDS: *HR* Heparin 5,000 UNIT/ML VIAL SQ SCH ×2 (05:12→17:42)
[2019-03-30] MEDS ORDERED: *HR* LORazepam 2 MG/ML VIAL IVP PRN ×2 (05:13→10:51)
[2019-03-30] MEDS ORDERED: *HR* LORazepam 0.5 MG TABLET PO ONE (09:17)
[2019-03-30 09:51] LABS: Basophils % 0.4 %; Eosinophils # 0.1 K/mcL (0.0-0.6); Hematocrit 41.6 % (35.3-44.9); Hemoglobin 14.2 g/dL (11.5-15.4); Immature Granulocytes % 0.3 % (0-4); Lymphocytes # 1.7 K/mcL (0.6-4.6); Lymphocytes % 17.7 %; Mean Corpuscular HGB Conc 34.1 g/dL (31.6-35.5); Mean Corpuscular Hemoglobin 31.3 pg (28.0-33.3); Mean Corpuscular Volume 91.6 fL (83.0-100.0); Mean Platelet Volume 9.5 fL (9.4-12.4); Monocytes # 0.6 K/mcL (0.0-1.3); Monocytes % 6.1 %; Platelet Count 238 K/mcL (140-400); Red Blood Count 4.54 M/mcL (3.82-4.97); Red Cell Distribution Width 12.7 % (11.5-14.5); Segmented Neutrophils % 74.5 %; White Blood Count 9.4 K/mcL (4.3-11.1)
[2019-03-30 10:06] LABS: BUN/Creatinine Ratio 14 (6-26); Blood Urea Nitrogen 12 mg/dL (8-23); Calcium 9.4 mg/dL (8.6-10.3); Carbon Dioxide 27 mEq/L (23-29); Chloride 100 mEq/L (98-107); Glucose 129 mg/dL (70-105); Osmolality,Calculated 287 (280-300); Potassium 4.2 mEq/L (3.5-5.1); Sodium 138 mEq/L (136-145); eGFR For African Americans > 60 (> 60); eGFR For Non-African Americans > 60 (> 60)
--- NOTE | 2019-03-30 11:35 | Internal Med Progress Note ---
Hospitalist Progress Note - Encounter Date of Encounter: 03/30/19 Time of Encounter: 09:00 - Subjective Interval History: reports poorly controlled anxiety but otherwise denies any abdominal pain or nausea. Continues to have multiple BMs yesterday - Exam Vitals: Temp Pulse Resp BP Pulse Ox 98.6 F 100 15 137/81 95 03/30/19 07:46 03/30/19 07:46 03/30/19 07:46 03/30/19 07:46 03/30/19 07:46 Exam: General: Mild distress, alert and oriented 3 Thoracic: No visible chest wall deformities. Normal breath sounds b/l, no wheezing or crackles Cardio: Normal S1 and S2, irregular rhythm, tachycardic Abdomen: Mildly distended but soft, nontender. Active bowel sounds Extremities: Warm, well perfused. DP pulses 2+ b/l. No edema Skin: Intact. No rashes, bruises, or ulcers Neuro: Nonfocal - Assessment and Plan (1) Partial small bowel obstruction Current Visit: Yes Status: Acute Assessment and Plan: clinically improving on IVF and NGT with LIWS, for SBFT today follow with surgery, appreciate input (2) Atrial fibrillation Current Visit: Yes Status: Chronic Assessment and Plan: Currently nothing by mouth due to small bowel obstruction as above. Will switch beta rayne to schedule IV Lopressor 2.5 mg every 6H Resume home meds once able to take by mouth Not on anticoagulation at home, continue aspirin (3) HTN (hypertension) Current Visit: No Status: Chronic Assessment and Plan: Home meds on hold due to small bowel obstruction, IV Lopressor as above (4) Diabetes Current Visit: Yes Status: Chronic Assessment and Plan: A1c 6.9 in 12/2018, not on meds at home low dose sliding scale coverage (5) Obesity (BMI 30.0-34.9) Current Visit: Yes Status: Acute Assessment and Plan: Lifestyle modifications emphasized (6) Anxiety Current Visit: Yes Status: Acute Assessment and Plan: Takes Xanax at home reports poorly controlled symptoms while NPO, will try IV ativan q8 PRN (7) DVT prophylaxis Current Visit: No Status: Acute Assessment and Plan: SQ hep - Time Spent with Patient Total time spent is greater than 50% in coordination of care (as documented) at patient's floor/unit and/or counseling patient: 25 - 35 minutes Plan of Care Discussed with: patient Internal Medicine: Result - Labs CBC & Chem 7: 03/30/19 09:33 03/30/19 09:33 Labs: Short CBC 03/30/19 Range/Units 09:33 WBC 9.4 (4.3-11.1) K/mcL Hgb 14.2 (11.5-15.4) g/dL Hct 41.6 (35.3-44.9) % Plt Count 238 (140-400) K/mcL Neutrophils # 7.0 (1.6-8.9) K/mcL BMP 03/30/19 09:33 Sodium 138 Potassium 4.2 Chloride 100 Carbon Dioxide 27 BUN 12 Creatinine 0.83 Glucose 129 H Calcium 9.4 Consult Discharge Plan - Plan Referrals: Xi Arnold CNP [Primary Care Provider] - (2) Atrial fibrillation Qualifiers: Atrial fibrillation type: chronic Qualified Code(s): I48.2 - Chronic atrial fibrillation (3) HTN (hypertension) Qualifiers: Hypertension type: essential hypertension Qualified Code(s): I10 - Essential (primary) hypertension (4) Diabetes Qualifiers: Diabetes mellitus type: type 2 Diabetes mellitus coating machine feeder insulin use: without coating machine feeder use Diabetes mellitus complication status: without complication Qualified Code(s): E11.9 - Type 2 diabetes mellitus without complications
--- NOTE | 2019-03-30 12:19 | AcuteCareSurgery Progress Note ---
Date of Encounter: 03/30/19 Time of Encounter: 12:00 - Assessment and Plan (1) Small bowel obstruction Current Visit: Yes Status: Acute SBFT reveals no sign of SB obstruction. SBO resolved. DC NGT. Clear liquid diet. Start Reglan IV and change protonix IV to BID. Restart home home meds that have not already been started: lasix and antidepressant/antianxiolytic. (2) HTN (hypertension) Current Visit: No Status: Chronic Qualifiers: Hypertension type: essential hypertension Qualified Code(s): I10 - Essential (primary) hypertension (3) Diabetes Current Visit: Yes Status: Chronic Qualifiers: Diabetes mellitus type: type 2 Diabetes mellitus long term care administrator insulin use: without long term care administrator use Diabetes mellitus complication status: without complication Qualified Code(s): E11.9 - Type 2 diabetes mellitus without complications (4) Anxiety Current Visit: Yes Status: Acute Subjective Patient reports: no new complaints, feels better, still having pain, pain is less, flatus, bowel movement, afebrile Narrative: NPO with NGT Objective Vital Signs - Last 8 Hours Temp Pulse Resp BP Pulse Ox 03/30/19 07:46 98.6 F 100 15 137/81 95 Intake and Output 03/29/19 03/30/19 03/30/19 23:59 07:59 15:59 Intake Total 0 / 1000 0 / 0 0 / 0 Output Total 450 / 1150 900 / 1100 200 / 1100 Balance -450 / -150 -900 / -1100 -200 / -1100 Intake: Oral 0 / 0 0 / 0 0 / 0 Output: Urine 200 / 200 900 / 1100 200 / 1100 Gastric Tube Lavage Amount 250 / 950 0 / 0 Left Nare 250 / 950 0 / 0 Gastric Drainage 0 / 0 Other: Meal npo Breakfast Percent of Meal Consumed 0% Stool Size Moderate Moderate Moderate Stool Consistency formed formed Stool Color Brown Brown Weight 84.9 kg Blood Glucose* 113 136 Patient Weight 03/30/19 23:59 Weight 84.9 kg - General physical appearance no distress, no pain - Eyes PERRL, normal ocular movement - ENT no congestion, dry mucosa - Neck Neck exam: trachea midline, no venous distension - Respiratory normal respiratory effort, clear to auscultation - Cardiovascular Cardiovascular exam: Present: RRR. Absent: JVD - Abdomen Abdomen: Present: bowel sounds present, soft, tender. Absent: distended, guar ding, rebound Abdominal Tenderness: diffusely - Neurologic CN 2-12 grossly intact, normal coordination - Musculoskeletal normal posture - Psychiatric oriented to time, oriented to person, oriented to place - Labs 03/30/19 09:33 03/30/19 09:33 Diabetes panel 03/30/19 Range/Units 09:33 Sodium 138 (136-145) mEq/L Potassium 4.2 (3.5-5.1) mEq/L Chloride 100 (98-107) mEq/L Carbon Dioxide 27 (23-29) mEq/L BUN 12 (8-23) mg/dL Creatinine 0.83 (0.60-1.20) mg/dL Glucose 129 H (70-105) mg/dL Calcium 9.4 (8.6-10.3) mg/dL Calcium panel 03/30/19 Range/Units 09:33 Calcium 9.4 (8.6-10.3) mg/dL Pituitary panel 03/30/19 Range/Units 09:33 Sodium 138 (136-145) mEq/L Potassium 4.2 (3.5-5.1) mEq/L Chloride 100 (98-107) mEq/L Carbon Dioxide 27 (23-29) mEq/L BUN 12 (8-23) mg/dL Creatinine 0.83 (0.60-1.20) mg/dL Glucose 129 H (70-105) mg/dL Calcium 9.4 (8.6-10.3) mg/dL Adrenal panel 03/30/19 Range/Units 09:33 Sodium 138 (136-145) mEq/L Potassium 4.2 (3.5-5.1) mEq/L Chloride 100 (98-107) mEq/L Carbon Dioxide 27 (23-29) mEq/L BUN 12 (8-23) mg/dL Creatinine 0.83 (0.60-1.20) mg/dL Glucose 129 H (70-105) mg/dL Calcium 9.4 (8.6-10.3) mg/dL Consult Discharge Plan - Plan Referrals: Xi Arnold, YOUSIF [Primary Care Provider] -
[2019-03-30] MEDS: dilTIAZem HCl 60 MG TABLET PO SCH ×2 (14:19→21:43)
[2019-03-30] MEDS: Aspirin Enteric Coated 325 MG Tablet PO SCH (14:19)
[2019-03-30] MEDS: Gabapentin 300 MG CAPSULE PO SCH ×2 (14:20→21:43)
[2019-03-30] MEDS: Pantoprazole 40 MG VIAL IVP SCH ×2 (14:20→17:40)
[2019-03-30] MEDS ORDERED: Furosemide 40 MG TABLET PO PRN (14:58)
[2019-03-30] MEDS ORDERED: tiZANidine 4 MG TABLET PO PRN (16:05)
[2019-03-30] MEDS: Metoclopramide 10 MG/2 ML VIAL IVP SCH ×2 (17:39→23:46)
[2019-03-30] MEDS: Mirtazapine 15 MG TABLET PO SCH (21:43)
[2019-03-31] MEDS: Metoclopramide 10 MG/2 ML VIAL IVP SCH (05:43)
[2019-03-31] MEDS: *HR* Heparin 5,000 UNIT/ML VIAL SQ SCH (05:43)
[2019-03-31] MEDS: *HR* Metoprolol 5 MG/5 ML VIAL IVP SCH (05:43)
[2019-03-31] MEDS: Ringers Solution, Lactated 1,000 ML IVC SCH ×2 (05:44)
[2019-03-31] MEDS: Pantoprazole 40 MG VIAL IVP SCH (05:44)
[2019-03-31 07:20] VITALS: BP 125/67
[2019-03-31] MEDS: Aspirin Enteric Coated 325 MG Tablet PO SCH (07:58)
[2019-03-31] MEDS: Gabapentin 300 MG CAPSULE PO SCH (07:58)
[2019-03-31] MEDS: dilTIAZem HCl 60 MG TABLET PO SCH (07:58)
[2019-03-31] MEDS ORDERED: LEVOMILNACIPRAN HCL 20 MG PO SCH (09:00)
--- NOTE | 2019-03-31 09:28 | Discharge Summary ---
- NOTES TO OUTPATIENT PROVIDER Notes to Outpatient Provider: Follow-up with PCP and surgery if needed Date of Encounter: 03/31/19 Time of Encounter: 07:15 - Discharge Diagnosis (1) Partial small bowel obstruction Priority: Primary Status: Acute (2) Atrial fibrillation Priority: Secondary Status: Chronic Qualifiers: Atrial fibrillation type: chronic Qualified Code(s): I48.2 - Chronic atrial fibrillation (3) HTN (hypertension) Priority: Secondary Status: Chronic Qualifiers: Hypertension type: essential hypertension Qualified Code(s): I10 - Esse ntial (primary) hypertension (4) Diabetes Priority: Secondary Status: Chronic Qualifiers: Diabetes mellitus type: type 2 Diabetes mellitus retirement insulin use: without retirement use Diabetes mellitus complication status: without complication Qualified Code(s): E11.9 - Type 2 diabetes mellitus without complications (5) Obesity (BMI 30.0-34.9) Priority: Secondary Status: Acute (6) Anxiety Priority: Secondary Status: Acute (7) DVT prophylaxis Priority: Secondary Status: Acute Hospital course: Ms. Jalloh is a 83 year old female with hx A-Fib, HTN, HLD, DM2, GERD, anx/dep, ovarian cancer s/p ragini/bso, obesity, who was admitted for partial SBO. Given her persistent nausea, NGT was inserted and she was maintained on LIWS. Managed in consultation with surgery and after 2 days of NGT with LIWS, her abdominal pain/nausea subsided, had multiple BM, and SBFT showed no evidence of ongoing small bowel obstruction. She was successfully advanced on diet and will be discharged on 03/31. Discharge discussed with: patient, nurse, career consultant - Time Spent with Patient Total time spent providing and/or coordinating discharge services: 32 mins - Discharge Medications Prescriptions: Continued Losartan [Cozaar] 12.5 mg PO DAILY Aspirin Enteric Coated [Aspirin EC] 325 mg PO DAILY Gabapentin [Neurontin] 300 mg PO BID dilTIAZem HCl [Diltiazem HCl] 120 mg PO BID Carvedilol 3.125 mg PO BIDWM Tizanidine HCl 2 mg PO BID PRN PRN Reason: Muscle Spasm Cholecalciferol (Vitamin D3) [Vitamin D3] 2,000 unit PO DAILY Acetaminophen [Tylenol] 500 mg PO BID PRN PRN Reason: Pain Calcium Carbonate [Calcium] 600 mg PO DAILY ALPRAZolam [Xanax 0.5 MG Tablet] 0.5 mg PO BID PRN PRN Reason: Anxiety Mirtazapine [Remeron] 15 mg PO HS Pravastatin Sodium 10 mg PO DAILY Furosemide [Lasix] 40 mg PO DAILY PRN PRN Reason: swelling/edema Omeprazole [PriLOSEC] 40 mg PO DAILY PRN PRN Reason: Heartburn Levomilnacipran HCl [Fetzima] 20 mg PO DAILY Home Medications: Acetaminophen [Tylenol] 500 mg PO BID PRN 04/24/17 [History] Aspirin Enteric Coated [Aspirin EC] 325 mg PO DAILY 04/24/17 [History] Carvedilol 3.125 mg PO BIDWM 04/24/17 [History] Cholecalciferol (Vitamin D3) [Vitamin D3] 2,000 unit PO DAILY 04/24/17 [History] Gabapentin [Neurontin] 300 mg PO BID 04/24/17 [History] Losartan [Cozaar] 12.5 mg PO DAILY 04/24/17 [History] Tizanidine HCl 2 mg PO BID PRN 04/24/17 [History] dilTIAZem HCl [Diltiazem HCl] 120 mg PO BID 04/24/17 [History] ALPRAZolam [Xanax 0.5 MG Tablet] 0.5 mg PO BID PRN 01/14/19 [History] Calcium Carbonate [Calcium] 600 mg PO DAILY 01/14/19 [History] Mirtazapine [Remeron] 15 mg PO HS 01/14/19 [History] Furosemide [Lasix] 40 mg PO DAILY PRN 03/28/19 [History] Levomilnacipran HCl [Fetzima] 20 mg PO DAILY 03/28/19 [History] Omeprazole [PriLOSEC] 40 mg PO DAILY PRN 03/28/19 [History] Pravastatin Sodium 10 mg PO DAILY 03/28/19 [History] Allergies/Adverse Reactions: Allergy/AdvReac Type Severity Reaction Status Date / Time tramadol AdvReac Depression Verified 03/17/19 09:45 Date of admission: 03/30/19 14:09 Primary care physician: Xi Arnold CNP Consults: 03/28/19 14:46 Consult to Surgery [CONS] Stat Consulting Provider: Acute Care Surgery Reason for Consult: SBO Call Completed: Yes - Constitutional Vitals: Temp Pulse Resp BP Pulse Ox 97.8 F 42 15 125/67 94 03/31/19 07:07 03/31/19 07:07 03/31/19 07:07 03/31/19 07:07 03/31/19 07:07 Exam: General: not in distress, alert and oriented 3 Thoracic: No visible chest wall deformities. Normal breath sounds b/l, no wheezing or crackles Cardio: Normal S1 and S2, irregular rhythm, normal rate Abdomen: Mildly distended but soft, nontender. Active bowel sounds Extremities: Warm, well perfused. DP pulses 2+ b/l. No edema Skin: Intact. No rashes, bruises, or ulcers Neuro: Nonfocal - Patient Status Disposition: Home, Self-Care Condition: Fair Functional capacity at discharge: independent ambulation Overall status at discharge: patient is progressing back to baseline - Discharge Instructions Instructions: Anxiety (DC), Atrial Fibrillation (DC), Diabetes Mellitus Type 2 in Adults (DC) Follow Up With: Xi Arnold IMMIGRATION OFFICER [Primary Care Provider] - - Diet and Activity Activity: resume usual activities as tolerated Diet: advance to your usual diet
--- NOTE | 2019-03-31 10:54 | AcuteCareSurgery Progress Note ---
Date of Encounter: 03/31/19 Time of Encounter: 07:00 - Assessment and Plan (1) Small bowel obstruction Current Visit: Yes Status: Acute SBFT reveals no sign of SB obstruction. SBO resolved. Tolerating clear liquid diet. Pt condition is satisfactory for DC to home when OK with hopsitalist primary service. F/U prn. (2) HTN (hypertension) Current Visit: No Status: Chronic Qualifiers: Hypertension type: essential hypertension Qualified Code(s): I10 - Essential (primary) hypertension (3) Diabetes Current Visit: Yes Status: Chronic Qualifiers: Diabetes mellitus type: type 2 Diabetes mellitus [facility] insulin use: without termite exterminator use Diabetes mellitus complication status: without complication Qualified Code(s): E11.9 - Type 2 diabetes mellitus without complications (4) Anxiety Current Visit: Yes Status: Acute Objective Vital Signs - Last 8 Hours Temp Pulse Resp BP Pulse Ox 03/31/19 07:07 97.8 F 42 15 125/67 94 03/31/19 03:18 98.2 F 79 16 138/69 93 Intake and Output 03/30/19 03/31/19 03/31/19 23:59 07:59 15:59 Intake Total 1000 / 1000 Output Total 100 / 100 Balance 900 / 900 Intake: IV Fluids 1000 / 1000 Lactated Ringers 1,000 ML @ 75 1000 / 1000 mls/hr IVC .[id number] NELA Rx#: [id number] Output: Urine 100 / 100 Other: # Voids 1 Weight 85.7 kg Patient Weight 03/31/19 23:59 Weight 85.7 kg - General physical appearance no distress, no pain - Eyes PERRL, normal ocular movement - ENT normal mucosa, no congestion - Neck Neck exam: trachea midline, no venous distension - Respiratory normal respiratory effort, clear to auscultation - Cardiovascular Cardiovascular exam: Present: RRR. Absent: JVD - Abdomen Abdomen: Present: bowel sounds present, soft, non tender. Absent: distended - Neurologic CN 2-12 grossly intact, normal coordination - Musculoskeletal normal posture - Psychiatric oriented to time, oriented to person, oriented to place - Labs 03/30/19 09:33 03/30/19 09:33 Consult Discharge Plan - Plan Instructions: Atrial Fibrillation (DC), Diabetes Mellitus Type 2 in Adults (DC), Anxiety (DC) Referrals: Xi Arnold CERTIFIED TEACHER ASSISTANT [Primary Care Provider] -
== END 2019-03-31 13:00 | disposition home or self-care (01) | DRG 390 ==
LOC: 3ANU 13:23 → EMEROOARM 13:23 → SUATTDRO 15:16 → 3ANU 16:27
PROVIDERS: ADMIT Internal Medicine; ATTEND Internal Medicine